=== PATIENT | female | born 1965 | race Caucasian/White ===

== ENCOUNTER → 2024-05-11 | Outpatient (CLI) | payer MEDICARE, OTHER, SELFPAY ==
--- NOTE | 2024-05-11 09:45 | XR_ITS ---
Examination: Breast ultrasound, unilateral, left complete Date and time of exam: May 11, 2024 0952 hrs. Indications: Left breast pain beginning one month ago Technique: Real-time lundberg scale ultrasonographic imaging performed left breast including all 4 quadrants as well as nipple retroareolar and axillary region. Findings: 1:00 cyst 4 x 4 millimeter 3:00 oval mass 2 x 10 mm Impression: BI-RADS Category 2: Benign findings
--- NOTE | 2024-05-11 10:15 | XR_ITS ---
Examination: Diagnostic digital mammography, unilateral, left Computer aided detection 3-D breast Tomosynthesis, unilateral Date and time of exam: 05/11/2024, 1021 Comparisons: 02/10/2024 Indications: Further evaluation of calcifications seen on screening exam. Technique: Nonmagnified MLO, CC views of the left breast have been obtained, reconstructed from 3-D Tomosynthesis images. R2 computer aided detection program utilized for evaluation of suspicious masses and/or abnormal calcifications. 3-D Tomosynthesis images obtained. Technologist: Findings: There are scattered areas of fibroglandular density. Benign vascular calcifications. No evidence of suspicious masses or suspicious calcifications. Impression: BI-RADS category 2: Benign findings Recommend 1 year follow-up mammogram
== END | disposition home or self-care (01) ==
PROVIDERS: PCP Physician Assistant; Referring Provider Physician Assistant; Visit Provider Physician Assistant
DX: R92.323 Mammographic fibroglandular density, bilateral breasts (principal); R92.1 Mammographic calcification found on diagnostic imaging of breast
CPT/HCPCS: 76641; 77061; 77065; G0279

== ENCOUNTER 2024-07-29 11:57 | Emergency (ER) | payer MEDICARE, MEDICAID, SELFPAY ==
[2024-07-29 11:57] VITALS: BMI 38.7
[2024-07-29 12:04] VITALS: BP 154/98; PULSE 87; RESP 18; TEMP 36.8; O2SAT 96
--- NOTE | 2024-07-29 12:05 | XR_ITS ---
Examination: CT brain head without contrast. 2-D sagittal coronal reconstructions Date and time of exam:July 29, 2024 1243 hours INDICATIONS: Severe headaches 4 days COMPARISON: September 02, 2020 CTDI: vol (mGy):48.9 DLP: (mGycm):1056 Technique: Multiple CT axial sections of the brain have been obtained, 5 mm slice thickness. Contrast has not been administered. 2-D sagittal, coronal reconstructions have been obtained Low dose protocols were performed. One or more of the following dose reduction techniques were used; automated exposure control, adjustment of the mA and/or KV according to patient size, use of iterative reconstruction technique. Findings: No significant ventricular enlargement. Intra-axial or extra-axial hemorrhage density is not seen. No mass effect or midline shift Basal cisterns are not remarkable. Fourth ventricle is midline. Cranial vault intact. Impression: Negative for acute hemorrhage, mass effect or midline shift If symptoms persist, consider brain MRI follow-up
--- NOTE | 2024-07-29 12:07 | PD.EDRME ---
Rapid Medical Screening Exam E Arrival date/time: 07/29/24 11:57 59-year-old female with history of MS presents to the Emergency Department today for complaints of headache ongoing for the last 3 days Chief Complaint: Headache Vital signs: Vital Signs Temperature 98.2 F 07/29/24 12:04 Pulse Rate 87 07/29/24 12:04 Respiratory Rate 18 07/29/24 12:04 Blood Pressure 154/98 H 07/29/24 12:04 Pulse Oximetry (%) 96 07/29/24 12:04 Oxygen Delivery Method Room Air 07/29/24 12:04
[2024-07-29] MEDS: METOCLOPRAMIDE 5 MG TABLET 10 MG PO (12:16)
[2024-07-29] MEDS: HYDROcodone/APAP 10/325 TAB PO (12:16)
[2024-07-29] MEDS: DiphenhydrAMINE 25 MG CAPSULE PO (12:17)
[2024-07-29 12:37] LABS: Basophils % (Auto) 0 % (0-2.5); Eosinophils # (Auto) 0.1 Thou/mm3 (0.0-0.5); Eosinophils % (Auto) 1 % (0-10); Hematocrit 48.4 % (36.0-46.0); Hemoglobin 16.7 g/dL (12.0-16.0); Immature Granulocytes % (Auto) 0 % (0-0); Immature Granulocytes Auto 0.04 Thou/mm3 (0.00-0.00); Lymphocytes # (Auto) 3.1 Thou/mm3 (1.0-4.8); Lymphocytes % (Auto) 32 % (10-50); Mean Corpuscular HGB Conc 34.5 g/dl (31.0-37.0); Mean Corpuscular Hemoglobin 30.6 pg (25.0-35.0); Mean Corpuscular Volume 89 fL (80-100); Monocytes # (Auto) 0.6 Thou/mm3 (0.0-0.8); Monocytes % (Auto) 6 % (0-12); Neutrophils # (Auto) 5.6 Thou/mm3 (1.8-7.7); Neutrophils % (Auto) 60 % (37-80); Nucleated Red Blood Cell % 0 /100 WBC (0); Platelet Count 261 Thou/mm3 (140-440); RDW Standard Deviation 43.1 fL (36.4-46.3); Red Blood Count 5.45 Miln/mm3 (4.00-5.20); White Blood Count 9.5 Thou/mm3 (3.6-11.0)
[2024-07-29 13:05] LABS: Alanine Aminotransferase 16 U/L (10-49); Albumin, Serum 4.5 gm/dL (3.4-4.8); Alkaline Phosphatase 124 U/L (46-116); Anion Gap 9 (7-16); Aspartate Amino Transferase 20 U/L (0-34); BUN/Creatinine Ratio 18 Ratio (12-20); Bilirubin,Total 0.7 mg/dL (0.3-1.2); Blood Urea Nitrogen 14 mg/dL (9-23); Calcium 9.5 mg/dL (8.3-10.6); Calcium (Corrected) 9.5 mg/dL (8.5-10.1); Carbon Dioxide 25.7 mMol/L (20.0-31.0); Chloride 107 mMol/L (98-107); Creatinine (Component) 0.8 mg/dL (0.6-1.3); Estimated Creatinine Clearance 93.4 mL/min (>60); Globulin 2.3 gm/dL (2.3-3.5); Glucose 101 mg/dL (74-106); Osmolality,Calculated 283 (275-295); Potassium 3.8 mMol/L (3.4-5.1); Sodium 142 mMol/L (136-145); Total Protein 6.8 gm/dL (5.7-8.2); eGFR > 60 See Note
--- NOTE | 2024-07-29 15:13 | EDNOTE_ITS ---
<Statement entered by Maddie Mcintyre MD - 08/09/24 01:03> As co-signing physician, I was present and available for consult prn. I concur with the plan and care as documented by the midlevel provider. ED Headache RME/HPI General Chief Complaint: Headache Stated Complaint: MIGRAINE HEADACHE X4DAYS Time Seen by Provider: 07/29/24 13:48 Arrival date/time: 07/29/24 11:57 RME / HPI RME / HPI Narrative: 59-year-old female with history of MS presents to the Emergency Department today for complaints of headache ongoing for the last 3 days. Described as dull ache, severity moderate. Patient denies any fever denies any neck pain denies any trauma denies any fall been taking Imitrex with no relief. Denies any vomiting. Related Data Home Medications ?Medication ?Instructions ?Recorded ?Confirmed omeprazole 40 mg capsule,delayed 40 mg PO QDAY 0 01/11/22 release pregabalin 200 mg capsule 200 mg PO TID 08/30/1901/11 cyclobenzaprine 10 mg tablet 10 mg PO QDAY 01/11/22 Previous Rx's ?Medication ?Instructions ?Recorded albuterol sulfate 90 mcg/actuation 1 inh inhalation Q4 H PRN shortness 11/03/20 aerosol inhaler of breath or wheezing #8.5 g delon rizatriptan 10 mg disintegrating See Rx Instructions P O .COMPLEX 07/29/24 tablet (Maxalt-TANK PROCESSOR) #20 tabs Allergies Allergy/AdvReac Type Severity Reaction Status Date / Time azithromycin Allergy Severe ITCHING Verified 07/29/24 12:00 cephalexin Allergy Severe ITCHING Verified 07/29/24 12:00 clarithromycin Allergy Severe ITCHING Verified 07/29/24 12:00 clindamycin Allergy Severe ITCHING, Verified 07/29/24 12:00 RASH latex Allergy Severe DIFF. Verified 07/29/24 12:00 BREATHING, RASH, ITCHING Penicillins Allergy Severe ITCHING Verified 07/29/24 12:00 Sulfa (Sulfonamide Allergy Severe HIVES Verified 07/29/24 12:00 Antibiotics) ciprofloxacin Allergy Intermediate ITCHING,RITU Verified 07/29/24 12:00 H peginterferon beta-1a Allergy Intermediate LOCALIZED Verified 07/29/24 12:00 REACTION AT INJECT SITE rifampin Allergy Unknown RASH Verified 07/29/24 12:00 Review of Systems Review of Systems Narrative Review of Systems: Review of system reviewed and within normal limits except mentioned in HPI ED Exam Narrative Physical exam: VITAL SIGNS: Reviewed. GENERAL APPEARANCE: Alert and interactive, follows commands, no acute distress, HEAD AND FACE: Non-traumatic. ENT: PERRL, pink conjunctivitis, eyelid no trauma, Mucous membrane moist. NECK: Supple, nontender, no nuchal rigidity. CHEST: No tenderness, no crepitus, no paradoxical movement, no retractions. LUNGS: Clear, well ventilated, symmetric, no rales, no wheezing, no ronchi, no stridor, good breath sounds bilaterally. HEART: Regular rate, regular rhythm, no murmur, no gallops. ABDOMEN: Soft, positive bowel sounds, nondistended, no guarding, nontender, no rebound, no masses, RECTAL: Deferred. GENITAL: Deferred. NEUROLOGICAL: Gross motor function intact sensory function intact, Appropriate for age. MUSCULOSKELETAL: low back nontender, full range of motion. EXTREMITIES: Nontender, full range of motion. SKIN: Color pink, dry, no rash, no lacerations, no abrasions, no contusions. LYMPHATICS: Deferred. Course Quality Measures none Orders Category Date Time Status CT head/brain wo con Stat Exams 07/29/24 12:05 Completed CBC Stat Lab 07/29/24 12:26 Completed CMP [Comprehensive Metabolic Panel] Stat Lab 07/29/24 12:26 Completed DiphenhydrAMINE [Benadryl] Med 07/29/24 12:05 Discontinued 25 mg PO X1 ONE HYDROcodone/APAP 10/325 [[place] 10/325] Med 07/29/24 12:05 Discontinued 1 tab PO X1 ONE Metoclopramide [Reglan] Med 07/29/24 12:05 Discontinued 10 mg PO X1 ONE Vital Signs Vital signs: Vital Signs Temperature 98.2 F 07/29/24 12:04 Pulse Rate 87 07/29/24 12:04 Respiratory Rate 18 07/29/24 12:04 Blood Pressure 154/98 H 07/29/24 12:04 Pulse Oximetry (%) 96 07/29/24 12:04 Oxygen Delivery Method Room Air 07/29/24 12:04 Headache MDM Narrative MDM Narrative:: 59-year-old female with history of MS presents to the Emergency Department today for complaints of headache ongoing for the last 3 days. Described as dull ache, severity moderate. Patient denies any fever denies any neck pain denies any trauma denies any fall been taking Imitrex with no relief. Denies any vomiting. CT scan of the head came back unremarkable. CBC CMP also came back normal. Patient was given [place] and Benadryl and Reglan with complete resolution of headache Patient appears nontoxic and hemodynamically stable .Decision to discharge the patient. The patient/family was given an opportunity to ask questions and understood their discharge instructions. Discharge instructions specifically included follow up provider and time frame, current and/or new medications and possible side effects, indications for sooner follow up or return to the emergency department, and the expected course of current diagnosis. Patient reports feeling better as well and giving evidence of significant clinical improvement, I believe patient is now a candidate for discharge. Patient data External records reviewed:: None Clinical information provided by:: patient Social determinants that could affect healthcare access:: none Patient has the following chronic illnesses:: None How is presenting disease/condition affected by chronic disease/condition?: no chronic disease Evaluation data The following diagnostics were reviewed and interpreted by me:: lab results and radiology exam(s) Lab and/or radiology exams considered but not ordered:: None Interpretation Summary: See MDM Medications / Prescriptions Medications or Prescriptions considered but not ordered:: None Medication administrations:: Medication Administration History Discontinued Medications Hydrocodone Bitart/Acetaminophen (Hydrocodone/Apap 10/325 Tab) 1 tab PO X1 ONE Stop: 07/29/24 12:06 Last Admin: 07/29/24 12:16 Dose: 1 tab Documented By: DO Diphenhydramine HCl (Diphenhydramine 25 Mg Capsule) 25 mg PO X1 ONE Stop: 07/29/24 12:06 Last Admin: 07/29/24 12:17 Dose: 25 mg Documented By: DO Metoclopramide HCl (Metoclopramide 5 Mg Tablet) 10 mg PO X1 ONE Stop: 07/29/24 12:06 Last Admin: 07/29/24 12:16 Dose: 10 mg Documented By: DO Reglan, Benadryl and [place] Consultations Consultation(s) initiated? (list below): No Diagnosis Differential diagnosis headache: migraine, tension headache and headache Most likely diagnosis given after review of the tests above:: Migraine headache Admission Indicated Admission indicated?: not indicated Admission Request Was there a request for admission?: No Disposition Plan Disposition Plan: Discharge Discharge Attestation Discharge Attestation: The patient was given an opportunity to ask questions and understood the discharge instructions. Discharge instructions specifically effects, ind ications for sooner follow up or return to the emergency department, and the expected course of current diagnosis. Patient condition: Stable Discharge Plan Plan Patient Disposition: HOME (Self Care) Discharge Disposition comment: stable Prescriptions/Referrals Prescriptions/Med Rec: New rizatriptan [Maxalt-TANK PROCESSOR] 10 mg tablet,disintegrating See Rx Instructions .ROUTE .COMPLEX Qty: 20 0RF Rx Instructions: take 1 tab at onset of headache; if no relief may repeat 1 tab after at least 2 hrs; max = 3 tabs/24 hr No Action omeprazole 40 mg Capsule,Delayed Release(Dr/Ec) 40 mg PO QDAY pregabalin 200 mg Capsule 200 mg PO TID albuterol sulfate 90 mcg/actuation HFA aerosol inhaler 1 inh inhalation Q4H PRN (Reason: shortness of breath or wheezing) Qty: 8.5 0RF cyclobenzaprine 10 mg tablet 10 mg PO QDAY Referrals: Kevin Cavazos MD [Primary Care Provider] - In 1 week Problem List Clinical Impression: Headache, migraine Patient/Caregiver Discharge Instructions Education Materials: Headache Migraine Stages Tx Additional Instructions: Thank you for the opportunity for serving you today. You are stable for discharged . You are advised to: Follow-up with your PCP in 1 to 2 days Return to ED for worsening of symptoms Increase oral fluids Take medication as prescribed Print Language: [place] Islander Stand Alone Forms: Olivia Award Info., Patient Portal Info Letter PA/MAIL DELIVERER Supervising Physician OMAR/GRETCHEN Supervising Physician: MD Farrukh
== END 2024-07-29 15:23 | disposition home or self-care (01) ==
PROVIDERS: Nurse Practitioner Primary Care; Emergency Provider Emergency Medicine; PCP Family Medicine
DX: G43.909 Migraine, unspecified, not intractable, without status migrainosus (principal)
CPT/HCPCS: 36415; 70450; 80053; 85025; 99284; A9270

== ENCOUNTER 2024-08-10 08:20 | Emergency (ER) | payer MEDICARE, MEDICAID, SELFPAY ==
[2024-08-10 08:41] VITALS: BP 159/96; PULSE 79; RESP 17; TEMP 38.1; O2SAT 97; BMI 37.9
--- NOTE | 2024-08-10 08:46 | EKG_ITS ---
[facility] Test Date: 2024-08-10 Pat Name: NORMA PRINCE Department: Room: - Gender: Female Tram Driver: : 1965 Requested By: Miky Suero Order Number: [id number] Reading MD: Miky Suero Measurements Intervals [place] Rate: 76 P: 61 IN: 183 QRS: -16 QRSD: 94 T: 57 QT: 372 QTc: 421 Interpretive Statements SINUS RHYTHM POSSIBLE LEFT ATRIAL ENLARGEMENT [-0.1mV P-WAVE IN V1/V2] LOW QRS VOLTAGE IN PRECORDIAL LEADS [QRS DEFLECTION < 1.0 mV IN CHEST LEADS] Compared to ECG 08/30/2021 10:24:12 Low QRS voltage now present /store/S0/[id number]
--- NOTE | 2024-08-10 08:48 | PD.EDRME ---
Rapid Medical Screening Exam RME Arrival date/time: 08/10/24 08:20 59-year-old female with a history of multiple sclerosis presents to the emergency room with a chief complaint of a fever, chills, weakness x 2 days I have greeted and performed a focused initial assessment of this patient. A comprehensive ED assessment and evaluation of the patient, analysis of all test results, and completion of the medical decision making process will be conducted by additional ED providers. Chief Complaint: General Adult/Misc Complain Time Seen by Provider: 08/10/24 08:31 Vital signs: Vital Signs Temperature 100.5 F H 08/10/24 08:41 Pulse Rate 79 08/10/24 08:41 Respiratory Rate 17 08/10/24 08:41 Blood Pressure 159/96 H 08/10/24 08:41 Pulse Oximetry (%) 97 08/10/24 08:41 Oxygen Delivery Method Room Air 08/10/24 08:41 Vital signs reviewed by provider: Yes
--- NOTE | 2024-08-10 08:49 | XR_ITS ---
Examination: PA lateral chest 2 views TECHNIQUE: Upright PA lateral chest 2 views Date and time: August 10, 2024 0903 hours Comparison August 08, 2021 INDICATIONS: Coughing fever beginning 3 days ago. FINDINGS: Normal heart size No pneumonia or pulmonary edema Intact osseous structures IMPRESSION: No active disease
[2024-08-10] MEDS: ACETAMINOPHEN 325 MG TABLET 650 MG PO (08:55)
[2024-08-10] MEDS: dexAMETHasone 4 MG TABLET 10 MG PO (08:56)
[2024-08-10 09:26] LABS: Collection Type, Urine Clean Catch
[2024-08-10 09:40] LABS: Bacteria,Urine Rare; Bilirubin,Urine Negative (Negative); Blood,Urine Negative (Negative); Clarity,Urine Clear (Clear/Hazy); Color,Urine Yellow (Lt Yel-Yel); Glucose, Urine Negative (Negative); Ketones,Urine Negative (Negative); Leukocyte Esterase,Urine Negative (Negative); Nitrite,Urine Negative (Negative); Protein,Urine Negative (Neg - Trace); RBC,Urine 5 /hpf (0-3); Specific Gravity,Urine 1.036 (1.001-1.035); Squamous Epithelial Cell,Urine 11 /hpf (0-5); WBC,Urine 2 /hpf (0-5)
[2024-08-10 09:51] LABS: Amphetamine/Methamp Scrn,U Negative (Negative); Barbiturate Screen,Urine Negative (Negative); Benzodiazepines Screen,Urine Negative (Negative); Benzoylecgonine Screen, Ur Negative (Negative); Fentanyl Screen,Urine Negative (Negative); Opiate Screen,Urine Negative (Negative); THC Screen,Urine Positive (Negative)
[2024-08-10 09:58] LABS: Basophils % (Auto) 0 % (0-2.5); Eosinophils # (Auto) 0.1 Thou/mm3 (0.0-0.5); Eosinophils % (Auto) 1 % (0-10); Hematocrit 48.8 % (36.0-46.0); Hemoglobin 16.5 g/dL (12.0-16.0); Immature Granulocytes % (Auto) 0 % (0-0); Immature Granulocytes Auto 0.04 Thou/mm3 (0.00-0.00); Lymphocytes # (Auto) 2.6 Thou/mm3 (1.0-4.8); Lymphocytes % (Auto) 28 % (10-50); Mean Corpuscular HGB Conc 33.8 g/dl (31.0-37.0); Mean Corpuscular Hemoglobin 30.5 pg (25.0-35.0); Mean Corpuscular Volume 90 fL (80-100); Monocytes # (Auto) 0.6 Thou/mm3 (0.0-0.8); Monocytes % (Auto) 6 % (0-12); Neutrophils % (Auto) 65 % (37-80); Nucleated Red Blood Cell % 0 /100 WBC (0); Platelet Count 251 Thou/mm3 (140-440); RDW Standard Deviation 44.1 fL (36.4-46.3); Red Blood Count 5.41 Miln/mm3 (4.00-5.20); White Blood Count 9.4 Thou/mm3 (3.6-11.0)
[2024-08-10 10:14] LABS: Alanine Aminotransferase 21 U/L (10-49); Albumin, Serum 4.8 gm/dL (3.4-4.8); Albumin/Globulin Ratio 2.3 (1.2-2.2); Alkaline Phosphatase 126 U/L (46-116); Anion Gap 7 (7-16); BUN/Creatinine Ratio 23 Ratio (12-20); Bilirubin,Total 0.7 mg/dL (0.3-1.2); Blood Urea Nitrogen 18 mg/dL (9-23); Calcium 10.1 mg/dL (8.3-10.6); Calcium (Corrected) 10.1 mg/dL (8.5-10.1); Carbon Dioxide 27.7 mMol/L (20.0-31.0); Chloride 104 mMol/L (98-107); Creatinine (Component) 0.8 mg/dL (0.6-1.3); Estimated Creatinine Clearance 92.3 mL/min (>60); Globulin 2.1 gm/dL (2.3-3.5); Glucose 139 mg/dL (74-106); Osmolality,Calculated 281 (275-295); Potassium 3.6 mMol/L (3.4-5.1); Sodium 139 mMol/L (136-145); Total Protein 6.9 gm/dL (5.7-8.2); Troponin I < 0.020 ng/mL (0.0-0.045); eGFR > 60 See Note
[2024-08-10 10:20] LABS: Partial Thromboplastin Time 27.1 Seconds (22.0-36.0); Prothrombin Time 10.5 Seconds (9.0-12.2)
[2024-08-10 10:34] LABS: B-Type Natriuretic Peptide 25 pg/mL (0-100)
[2024-08-10 12:47] VITALS: BP 170/105; PULSE 85; RESP 18; TEMP 36.9; O2SAT 96
--- NOTE | 2024-08-10 13:41 | PD.EDADULT ---
ED General RME/HPI General Chief complaint: General Adult/Misc Complain Stated complaint: EXACERBATION OF MS Time Seen by Provider: 08/10/24 08:31 Arrival date/time: 08/10/24 08:20 RME / HPI RME / HPI narrative: 59-year-old female patient with significant history of multiple sclerosis, currently not on any medications, came in for evaluation regarding not feeling well. Patient has been having this symptom for several days and this morning was noted to be shaky and having chills and worsening weakness. Denies any blurry vision denies any headache denies any other complaints. Patient used to see Dr Pierson however she moved to [place] and came back. She was admitted in [place] twice for IVIG due to exacerbation of multiple sclerosis. She thinks is having flareup of multiple sclerosis. Related Data Home Medications ?Medication ?Instructions ?Recorded ?Confirmed omeprazole 40 mg capsule,delayed 40 mg PO QDAY 08/30/19 01/11/22 release pregabalin 200 mg capsule 200 mg PO TID 08/30/19 01/11/22 cyclobenzaprine 10 mg tablet 10 mg PO QDAY 01/11/22 01/11/22 Previous Rx's ?Medication ?Instructions ?Recorded albuterol sulfate 90 mcg/actuation 1 inh inhalation Q4H PRN shortness 11/03/20 aerosol inhaler of breath or wheezing #8.5 grams rizatriptan 10 mg disintegrating See Rx Instructions PO .COMPLEX 07/29/24 tablet (Maxalt-WAISTLINE JOINER LOCKSTITCH) #20 tabs Allergies Allergy/AdvReac Type Severity Reaction Status Date / Time azithromycin Allergy Severe ITCHING Verified 08/10/24 08:25 cephalexin Allergy Severe ITCHING Verified 08/10/24 08:25 clarithromycin Allergy Severe ITCHING Verified 08/10/24 08:25 clindamycin Allergy Severe ITCHING, Verified 08/10/24 08:25 RASH latex Allergy Severe DIFF. Verified 08/10/24 08:25 BREATHING, RASH, ITCHING Penicillins Allergy Severe ITCHING Verified 08/10/24 08:25 Sulfa (Sulfonamide Allergy Severe HIVES Verified 08/10/24 08:25 Antibiotics) ciprofloxacin Allergy Intermediate ITCHING,RITU Verified 08/10/24 08:25 H peginterferon beta-1a Allergy Intermediate LOCALIZED Verified 08/10/24 08:25 REACTION AT INJECT SITE rifampin Allergy Unknown RASH Verified 08/10/24 08:25 OCCUVISE Allergy Severe Anaphylaxis Uncoded 08/10/24 08:25 Review of Systems Review of Systems Narrative Review of Systems: Review of system reviewed and within normal limits except mentioned in HPI ED Exam Narrative Physical exam: VITAL SIGNS: Reviewed. GENERAL APPEARANCE: Alert and interactive, follows commands, no acute distress, HEAD AND FACE: Non-traumatic. ENT: PERRL, pink conjunctivitis, eyelid no trauma, Mucous membrane moist. NECK: Supple, nontender, no nuchal rigidity. CHEST: No tenderness, no crepitus, no paradoxical movement, no retractions. LUNGS: Clear, well ventilated, symmetric, no rales, no wheezing, no ronchi, no stridor, good breath sounds bilaterally. HEART: Regular rate, regular rhythm, no murmur, no gallops. ABDOMEN: Soft, positive bowel sounds, nondistended, no guarding, nontender, no rebound, no masses, RECTAL: Deferred. GENITAL: Deferred. NEUROLOGICAL: Gross motor function intact sensory function intact, Appropriate for age. MUSCULOSKELETAL: low back nontender, full range of motion. EXTREMITIES: Nontender, full range of motion. SKIN: Color pink, dry, no rash, no lacerations, no abrasions, no contusions. LYMPHATICS: Deferred. Course Quality Measures none Orders Category Date Time Status Bedside COVID-19 Antigen Test NOW Care 08/10/24 12:21 Completed Bedside Influenza A&B Antigen Test NOW Care 08/10/24 08:49 Completed EKG (ED ONLY) *Do not use* NOW Care 08/10/24 08:46 Completed EKG (ED Only) Stat Exams 08/10/24 08:46 Draft XR chest 2V Stat Exams 08/10/24 08:49 Completed B-Type Natriuretic Peptide Stat Lab 08/10/24 09:00 Completed CBC Stat Lab 08/10/24 09:00 Completed Comprehensive Metabolic Panel Stat Lab 08/10/24 09:00 Completed Drug Screen,Urine Stat Lab 08/10/24 09:13 Completed Partial Thromboplastin Time Stat Lab 08/10/24 09:00 Completed Prothrombin Time with INR Stat Lab 08/10/24 09:00 Completed Troponin I Stat Lab 08/10/24 09:00 Completed Urinalysis Stat Lab 08/10/24 09:13 Completed Acetaminophen Tab [Tylenol Tab] Med 08/10/24 08:46 Discontinued 650 mg PO X1 ONE dexAMETHasone TAB [Decadron Tab] Med 08/10/24 08:46 Discontinued 10 mg PO X1 ONE Vital Signs Vital signs: Vital Signs Temperature 100.5 F H 08/10/24 08:41 Pulse Rate 79 08/10/24 08:41 Respiratory Rate 17 08/10/24 08:41 Blood Pressure 159/96 H 08/10/24 08:41 Pulse Oximetry (%) 97 08/10/24 08:41 Oxygen Delivery Method Room Air 08/10/24 08:41 Discharge Plan Plan Patient Disposition: HOME (Self Care) Discharge Disposition comment: stable Prescriptions/Referrals Prescriptions/Med Rec: No Action omeprazole 40 mg Capsule,Delayed Release(Dr/Ec) 40 mg PO QDAY pregabalin 200 mg Capsule 200 mg PO TID albuterol sulfate 90 mcg/actuation HFA aerosol inhaler 1 inh inhalation Q4H PRN (Reason: shortness of breath or wheezing) Qty: 8.5 0RF cyclobenzaprine 10 mg tablet 10 mg PO QDAY rizatriptan [Maxalt-WAISTLINE JOINER LOCKSTITCH] 10 mg tablet,disintegrating See Rx Instructions .ROUTE .COMPLEX Qty: 20 0RF Rx Instructions: take 1 tab at onset of headache; if no relief may repeat 1 tab after at least 2 hrs; max = 3 tabs/24 hr Referrals: Kevin Cavazos MD [Primary Care Provider] - In 1 week Problem List Clinical Impression: Weakness Patient/Caregiver Discharge Instructions Discharge Activity: activity as tolerated Education Materials: ED Weakness (Uncertain Cause) Additional Instructions: Follow up with Dr Pierson in 1-2 days Return to ED for worsening symptoms Print Language: [place] Stand Alone Forms: Olivia Award Info., Patient Portal Info Letter PA/JOIST SETTER Supervising Physician PA/JOIST SETTER Supervising Physician: Dr Chapman, ABHINAV Narrative MDM hospital course: 59-year-old female patient with significant history of multiple sclerosis, currently not on any medications, came in for evaluation regarding not feeling well. Patient has been having this symptom for several days and this morning was noted to be shaky and having chills and worsening weakness. Denies any blurry vision denies any headache denies any other complaints. Patient used to see Dr Pierson however she moved to [place] and came back. She was admitted in [place] twice for IVIG due to exacerbation of multiple sclerosis. She thinks is having flareup of multiple sclerosis. Patient's workup today including chest x-ray came back unremarkable. Negative for COVID and influenza. I discussed the case with Dr Pierson, patient's neurologist, who told me that patient is okay to be discharged home and follow-up in his clinic in few days. Plan of care discussed with the patient who agrees with the plan. Patient appears nontoxic and hemodynamically stable .Decision to discharge the patient. The patient/family was given an opportunity to ask questions and understood their discharge instructions. Discharge instructions specifically included follow up provider and time frame, current and/or new medications and possible side effects, indications for sooner follow up or return to the emergency department, and the expected course of current diagnosis. Patient reports feeling better as well and giving evidence of significant clinical improvement, I believe patient is now a candidate for discharge. Patient was noted to be ambulatory unaided with no problem. Medication Administration(s) Medication Administration History Discontinued Medications Acetaminophen (Acetaminophen 325 Mg Tablet) 650 mg PO X1 ONE Stop: 08/10/24 08:47 Last Admin: 08/10/24 08:55 Dose: 650 mg Documented By: BESS Dexamethasone (Dexamethasone 4 Mg Tablet) 10 mg PO X1 ONE Stop: 08/10/24 08:47 Last Admin: 08/10/24 08:56 Dose: 10 mg Documented By: BESS Dispositon Disposition: Discharge Home
[2024-08-10 14:00] VITALS: BP 171/108; PULSE 73; RESP 18; TEMP 36.6; O2SAT 100
== END 2024-08-10 14:44 | disposition home or self-care (01) ==
PROVIDERS: Nurse Practitioner Family; Emergency Provider Emergency Medicine; PCP Family Medicine
DX: R53.1 Weakness (principal); G35 Multiple sclerosis
CPT/HCPCS: 36415; 71046; 80053; 80307; 81001; 83880; 84484; 85025; 85610; 85730; 87400; 87811; 93005; 99283; J8540; A9270

== ENCOUNTER 2024-11-01 09:37 | Emergency (ER) | payer MEDICARE, MEDICAID, SELFPAY ==
[2024-11-01 09:57] VITALS: BP 164/104; PULSE 84; RESP 18; TEMP 37.1; O2SAT 96
[2024-11-01 10:00] VITALS: BMI 36.3
--- NOTE | 2024-11-01 10:02 | EKG_ITS ---
[facility] Test Date: 2024-11-01 Pat Name: NORMA PRINCE Department: Room: - Gender: Female Medical Delivery Driver: : 1965 Requested By: Miky Suero Order Number: [id number] Reading MD: Miky Suero Measurements Intervals [place] Rate: 81 P: 53 NE: 179 QRS: 7 QRSD: 86 T: 45 QT: 359 QTc: 417 Interpretive Statements SINUS RHYTHM LOW QRS VOLTAGE IN PRECORDIAL LEADS [QRS DEFLECTION < 1.0 mV IN CHEST LEADS] Compared to ECG 08/10/2024 08:50:02 No significant changes /store/S0/[id number]
--- NOTE | 2024-11-01 10:04 | PD.EDRME ---
Rapid Medical Screening Exam RME Arrival date/time: 11/01/24 09:37 59-year-old female with a history of migraines presents to the emergency room with a chief complaint of a headache, weakness, lightheadedness x 3 days I have greeted and performed a focused initial assessment of this patient. A comprehensive ED assessment and evaluation of the patient, analysis of all test results, and completion of the medical decision making process will be conducted by additional ED providers. Chief Complaint: Headache Time Seen by Provider: 11/01/24 09:49 Vital signs: Vital Signs Temperature 98.8 F 11/01/24 09:57 Pulse Rate 84 11/01/24 09:57 Respiratory Rate 18 11/01/24 09:57 Blood Pressure 164/104 H 11/01/24 09:57 Pulse Oximetry (%) 96 11/01/24 09:57 Oxygen Delivery Method Room Air 11/01/24 09:57 Vital signs reviewed by provider: Yes
[2024-11-01] MEDS: DiphenhydrAMINE ELIX 25 MG/10 ML UDC PO (10:17)
[2024-11-01] MEDS: METOCLOPRAMIDE 5 MG TABLET 10 MG PO (10:17)
[2024-11-01] MEDS: KETOROLAC INJ 60 MG/2 ML VIAL 30 MG IM (10:17)
[2024-11-01 10:55] LABS: Basophils # (Auto) 0.0 Thou/mm3 (0.0-0.2); Basophils % (Auto) 1 % (0-2.5); Eosinophils # (Auto) 0.1 Thou/mm3 (0.0-0.5); Eosinophils % (Auto) 1 % (0-10); Hematocrit 46.3 % (36.0-46.0); Hemoglobin 15.9 g/dL (12.0-16.0); Immature Granulocytes Auto 0.03 Thou/mm3 (0.00-0.00); Lymphocytes # (Auto) 2.7 Thou/mm3 (1.0-4.8); Lymphocytes % (Auto) 35 % (10-50); Mean Corpuscular HGB Conc 34.3 g/dl (31.0-37.0); Mean Corpuscular Hemoglobin 30.9 pg (25.0-35.0); Mean Corpuscular Volume 90 fL (80-100); Monocytes # (Auto) 0.6 Thou/mm3 (0.0-0.8); Monocytes % (Auto) 7 % (0-12); Neutrophils # (Auto) 4.4 Thou/mm3 (1.8-7.7); Neutrophils % (Auto) 56 % (37-80); Nucleated Red Blood Cell # 0.00 Thou/mm3 (0.00-0.00); Nucleated Red Blood Cell % 0 /100 WBC (0); Platelet Count 214 Thou/mm3 (140-440); RDW Standard Deviation 42.5 fL (36.4-46.3); Red Blood Count 5.15 Miln/mm3 (4.00-5.20); White Blood Count 7.8 Thou/mm3 (3.6-11.0)
[2024-11-01 11:15] LABS: Alanine Aminotransferase 24 U/L (10-49); Albumin, Serum 4.1 gm/dL (3.4-4.8); Albumin/Globulin Ratio 1.8 (1.2-2.2); Alkaline Phosphatase 118 U/L (46-116); Anion Gap 7 (7-16); Aspartate Amino Transferase 18 U/L (0-34); B-Type Natriuretic Peptide 37 pg/mL (0-100); BUN/Creatinine Ratio 12 Ratio (12-20); Bilirubin,Total 0.5 mg/dL (0.3-1.2); Blood Urea Nitrogen 11 mg/dL (9-23); Calcium 9.9 mg/dL (8.3-10.6); Calcium (Corrected) 9.9 mg/dL (8.5-10.1); Carbon Dioxide 25.9 mMol/L (20.0-31.0); Chloride 109 mMol/L (98-107); Creatinine (Component) 0.9 mg/dL (0.6-1.3); Estimated Creatinine Clearance 80.2 mL/min (>60); Globulin 2.3 gm/dL (2.3-3.5); Glucose 92 mg/dL (74-106); Osmolality,Calculated 282 (275-295); Potassium 3.8 mMol/L (3.4-5.1); Sodium 142 mMol/L (136-145); Total Protein 6.4 gm/dL (5.7-8.2); Troponin I < 0.020 ng/mL (0.0-0.045); eGFR > 60 See Note
--- NOTE | 2024-11-01 12:06 | EDNOTE_ITS ---
<Statement entered by Maddie Mcintyre MD - 11/12/24 11:14> As co-signing physician, I was present and available for consult prn. I concur with the plan and care as documented by the midlevel provider. ED General RME/HPI General Chief complaint: Headache Stated complaint: MIGRAIN DANIELS SINCE THURSDAY Time Seen by Provider: 11/01/24 09:49 Arrival date/time: 11/01/24 09:37 CC: Headache nausea vomiting light sensitivity noise sensitivity HPI ongoing for the past 2-1/2 days has long history of migraines. Patient also states that she has fibromyalgia and MS. Patient was taking her ergotamine for the past 3-1/2 days without relief. Patient denies chest pain shortness of breath or dif ficulty breathing. At time of exam the patient had received an injection of medication here and is incomplete relief with no symptoms whatsoever. RME / HPI RME / HPI narrative: 11/01/24 09:37 59-year-old female with a history of migraines presents to the emergency room with a chief complaint of a headache, weakness, lightheadedness x 3 days I have greeted and performed a focused initial assessment of this patient. A comprehensive ED assessment and evaluation of the patient, analysis of all test results, and completion of the medical decision making process will be conducted by additional ED providers. 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 Verified 08/10/24 08:25 BREATHING, RASH, ITCHING Penicillins Allergy Severe ITCHING Verified 08/10/24 08:25 Sulfa (Sulfonamide Allergy Severe HIVES Verified 08/10/24 08:25 Antibiotics) ciprofloxacin Allergy Intermediate ITCHING,RITU Verified 08/10/24 08:25 H peginterferon beta-1a Allergy Intermediate LOCALIZED Verified 08/10/24 08:25 REACTION AT INJECT SITE rifampin Allergy Unknown RASH Verified 08/10/24 08:25 OCCUVISE Allergy Severe Anaphylaxis Uncoded 08/10/24 08:25 Review of Systems Review of Systems Narrative Review of Systems: GEN: No fever, no chills, no weight loss EYES: No discharge, no visual changes, no pain HEENT: No ear pain, no congestion, no sore throat PULM: No shortness of breath, no cough, no congestion CV: No chest pain, no dyspnea on exertion, no palpitations GI: No nausea, no vomiting, no diarrhea, no pain, no constipation : No frequency, no urgency, no dysuria MUSC/SKEL: No joint pain, no back pain SKIN: No rash PSYCH: No hallucinations, no depression HEME/LYMPH: No easy bleeding or bruising tendencies NEURO: No weakness, + headache Past Medical History Past Medical History NEUROLOGIC: Positive Neurological Disorders, Meningitis, Seizures, Multiple Sclerosis and Migraine CARDIAC: Positive Cardiac Disorders, Atherosclerotic Heart Disease, Hypercholesterolemia and Edema; Negative Congestive Heart Failure or Hypertension RESPIRATORY: Negative Chronic Obstructive Pulmonary Disease (COPD) or Asthma GASTROINTESTINAL: Positive Gastrointestinal Disorders, Colitis, Diverticulitis and Ulcer; Negative Gall Bladder Disease GENITOURINARY: Negative Genitourinary Disorders or Renal Disease REPRODUCTIVE: Positive Endometriosis and Previous Pregnancies MUSCULOSKELETAL: Positive Musculoskeletal Disorders, Arthritis and Fibromyalgia ENT: Negative Cataracts ENDOCRINE: Negative Endocrine Disorders, Diabetes Mellitus Type 1 or Diabetes Mellitus Type 2 HEMATOLOGIC: Negative Blood Disorders or Sickle Cell Disease PSYCHO/SOCIAL: Positive Depression, Anxiety and Post Traumatic Stress Disorder OTHER HISTORY: Positive Hospitalization, Shingles and Chicken Pox; Negative Autoimmune Disease Family History FAMILY HISTORY: Positive Family Psychiatric Problems, Family Respiratory Disorders, Family Cardiac Disorders, Family Gastrointestinal Problems and Family Cancer; Negative Family Surgery or Family Anesthesia Reaction Surgical History SURGICAL: Positive Ear Surgery, Tonsillectomy, Adenoidectomy, Cochlear Implant, Abdominal Surgery, Joint Replacement and Hysterectomy; Negative Cardiac Surgery Social History SMOKING STATUS: Never smoker SUBSTANCE USE: does not use ED Exam Narrative Physical exam: [General: Obese not in any acute distress Head normocephalic HEENT: Eyes pupils are PERRLA EOMs are intact mouth pink moist membranes uvula is midline swallow symmetrical phonation is normal all other subsystems of HEENT are within acceptable limits Neck is supple nontender Chest equal chest rise nontender to palpation Respiratory: Clear to auscultation no wheezes crackles or rubs CV: Rate rhythm is regular no murmurs rubs or clicks Abdomen is distended secondary to body habitus soft nontender no masses positive bowel sounds all 4 quadrants Back: No CVA tenderness no spinous process tenderness from cervical spine thoracic and lumbar spine Skin: Intact no petechiae rash induration ulceration or crepitus Extremities: Moving all extremity against resistance cap refill less than 2 seconds neurosensory intact Neuro: Awake alert oriented x3 Glascow coma 15 no focal deficits] Course Quality Measures none Orders Category Date Time Status EKG (ED ONLY) *Do not use* NOW Care 11/01/24 10:02 Completed EKG (ED Only) Stat Exams 11/01/24 10:02 Draft B-Type Natriuretic Peptide Stat Lab 11/01/24 10:36 Completed CBC Stat Lab 11/01/24 10:36 Completed Comprehensive Metabolic Panel Stat Lab 11/01/24 10:36 Completed Troponin I Stat Lab 11/01/24 10:36 Completed DiphenhydrAMINE [Benadryl] Med 11/01/24 10:02 Discontinued 25 mg PO X1 ONE Ketorolac Inj [Toradol Inj] Med 11/01/24 10:02 Discontinued 30 mg IM X1 ONE Metoclopramide [Reglan] Med 11/01/24 10:02 Discontinued 10 mg PO X1 ONE Vital Signs Vital signs: Vital Signs Temperature 98.8 F 11/01/24 09:57 Pulse Rate 84 11/01/24 09:57 Respiratory Rate 18 11/01/24 09:57 Blood Pressure 164/104 H 09/02/25 09:57 Pulse Oximetry (%) 96 11/01/24 09:57 Oxygen Delivery Method Room Air 11/01/24 09:57 Discharge Plan Plan Patient Disposition: HOME (Self Care) Patient condition on transfer: Stable Prescriptions/Referrals Prescriptions/Med Rec: New ketorolac 10 mg tablet 10 mg PO Q8H Qty: 10 0RF Rx Instructions: maximum total duration of 5 days from all oral, intranasal, or parenteral formulations ondansetron 4 mg tablet,disintegrating 4 mg PO Q8H Qty: 10 0RF No Action omeprazole 40 mg Capsule,Delayed Release(Dr/Ec) 40 mg PO QDAY pregabalin 200 mg Capsule 200 mg PO TID albuterol sulfate 90 mcg/actuation HFA aerosol inhaler 1 inh inhalation Q4H PRN (Reason: shortness of breath or wheezing) Qty: 8.5 0RF cyclobenzaprine 10 mg tablet 10 mg PO QDAY rizatriptan [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] 10 mg tablet,disintegrating See Rx Instructions .ROUTE .COMPLEX Qty: 20 0RF Rx Instructions: take 1 tab at onset of headache; if no relief may repeat 1 tab after at least 2 hrs; max = 3 tabs/24 hr Referrals: No Primary/Family,Physician [Primary Care Provider] - In 1 week Kevin Cavazos MD [Physician] - In 1 week Problem List Clinical Impression: Migraine Patient/Caregiver Discharge Instructions Education Materials: ED Headache, Migraine, Classic Print Language: Lithuanian Stand Alone Forms: Olivia Award Info., Patient Portal Info Letter PA/INFORMATION SERVICES CONSULTANT Supervising Physician PA/INFORMATION SERVICES CONSULTANT Supervising Physician: Farhad Gaytan ENP [facility] Clinical Information Provided by patient Medical Records Reviewed [facility] Meds/Rx Considered, not Ordered None Labs/Rad/Tests considered, not Ordered None Chronic Illness/Social Conditions Add or document further as needed: MS, fibromyalgia, morbid obesity EKG EKG Interpretation narrative: EKG performed at 1011 shows a ventricular rate of 81 IN interval 179 QRS of 8 6 QTc of 396 this is sinus rhythm no significant ST segment changes. Lab Interpretation Lab(s) interpretation(s): CBC shows no acute leukocytosis anemia thrombocytopenia CMP shows no significant electrolyte imbalances renal impairment transaminitis or T. bili elevation BNP is negative Troponin is within acceptable limits Imaging Imaging interpretation: interpreted by mn Provider imaging interpretation(s): Differential diagnosis migraine tension headache somatization cluster headache Medication Administration(s) none Medication Administration History Discontinued Medications Diphenhydramine HCl (Diphenhydramine Elix 25 Mg/10 Ml Udc) 25 mg PO X1 ONE Stop: 11/01/24 10:03 Last Admin: 11/01/24 10:17 Dose: 25 mg Documented By: OA Ketorolac Tromethamine (Ketorolac Inj 60 Mg/2 Ml Vial) 30 mg IM X1 ONE Stop: 11/01/24 10:03 Last Admin: 11/01/24 10:17 Dose: 30 mg Documented By: OA Metoclopramide HCl (Metoclopramide 5 Mg Tablet) 10 mg PO X1 ONE Stop: 11/01/24 10:03 Last Admin: 11/01/24 10:17 Dose: 10 mg Documented By: OA Diagnosis Differential diagnosis: See above Most likely dx, and/or detailed dx discussion: Migraine Dispositon Disposition: Discharge Home
== END 2024-11-01 12:23 | disposition home or self-care (01) ==
PROVIDERS: Nurse Practitioner Family; Emergency Provider Emergency Medicine
DX: G43.909 Migraine, unspecified, not intractable, without status migrainosus (principal); R94.31 Abnormal electrocardiogram [ECG] [EKG]; E78.00 Pure hypercholesterolemia, unspecified; I25.10 Atherosclerotic heart disease of native coronary artery without angina pectoris
CPT/HCPCS: 36415; 80053; 83880; 84484; 85025; 93005; 96372; 99283; J1885; A9270

== ENCOUNTER 2024-11-09 09:30 | Outpatient (RCR) | payer MEDICARE, MEDICAID, SELFPAY ==
--- NOTE | 2024-11-09 10:05 | PT.OIERPT ---
PT OP Initial Eval Patient Information Outpatient Physical Therapy Treatment Date: 11/09/24 Visit Reasons: DIFFICULTY WALKING Medical Diagnosis: R26.2 Treatment Dx #1: Difficulty Walking Start of Care: 11/09/24 Smoking Status Smoking Status: Current every day smoker Cessation Counseling Provided: NORMA was advised that quitting smoking is the single most important factor to protect the health of themselves and their family. Discussed the benefits of quitting smoking with patient. Encouraged patient to quit smoking and provided Cessation assistance materials and resources. Tobacco Use: Cigarette Years smoked: 20 Are you interested in quitting?: No Would you like additional Smoking Cessation Counseling?: No Initial Assessment Subjective: Pt is a 59 y/o female reports of intermittent difficulty walking due to multiple sclerosis. At the moment Pt is not having difficult with walking and prefers not to do any physical therapy. Pt's main concern is her neck and shoulder pain which recently started a few months ago. Pt will return back to provider for a new PT order for the neck. Objective: BLE: all motions are WNL BLE MMTs: grossly 4/5 TU sec Assessment: Pt demonstrate functional BLE AROM and strength allowing her to ambulate at base line. At this time Pt will not benefit from physical therapy due to minimal impairment noted with gait. Pt was evaluated and d/c from care; thank you for your referrals. 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
== END 2024-11-29 23:59 | disposition home or self-care (01) ==
LOC: CPTX 09:30
PROVIDERS: PCP Internal Medicine; Referring Provider Internal Medicine; Visit Provider Internal Medicine
DX: R26.2 Difficulty in walking, not elsewhere classified (principal); G35 Multiple sclerosis; M54.2 Cervicalgia; M25.519 Pain in unspecified shoulder; Z71.6 Tobacco abuse counseling; F17.210 Nicotine dependence, cigarettes, uncomplicated
CPT/HCPCS: 97162

== ENCOUNTER 2024-12-03 11:46 | Emergency (ER) | payer MEDICARE, MEDICAID, SELFPAY ==
[2024-12-03 11:47] VITALS: BMI 36.3
[2024-12-03 12:54] VITALS: BP 177/101; PULSE 72; RESP 18; TEMP 36.8; O2SAT 98; BMI 33.0
--- NOTE | 2024-12-03 13:04 | XR_ITS ---
Examination: Foot, right, 3 views Technique: AP, oblique, lateral views foot, 3 views Date and time of exam: December 03, 2024, 1323 hrs. Indications: Injury to the foot 3 days ago, foot pain. Findings: Moderate osteopenia No acute fracture No dislocation Impression: No acute fracture
--- NOTE | 2024-12-03 14:04 | PD.EDANKLE ---
Lower Extremity Injury RME/HPI General Chief Complaint: Ankle/Foot Injury Stated Complaint: R FOOT PAIN S/P DOG JUMPING ON ME Time Seen by Provider: 12/03/24 11:49 Arrival date/time: 12/03/24 11:46 This is a 59-year-old female that comes into the emergency room with complaints of right foot pain. Patient states that on 2 different occasion her dog stepped on her. Patient denies any other trauma. Patient has some mild edema to her right foot. Related Data Home Medications ?Medication ?Instructions ?Recorded ?Confirmed omeprazole 40 mg capsule,delayed 40 mg PO QDAY 08/30/19 01/11/22 release pregabalin 200 mg capsule 200 mg PO TID 08/30/19 01/11/22 cyclobenzaprine 10 mg tablet 10 mg PO QDAY 01/11/22 01/11/22 Previous Rx's ?Medication ?Instructions ?Recorded albuterol sulfate 90 mcg/actuation 1 inh inhalation Q4H PRN shortness 11/03/20 aerosol inhaler of breath or wheezing #8.5 grams rizatriptan 10 mg disintegrating See Rx Instructions PO .COMPLEX 07/29/24 tablet (Maxalt-APPLICATION DBA) #20 tabs ketorolac 10 mg tablet 10 mg PO Q8H #10 tabs 11/01/24 ondansetron 4 mg disintegrating 4 mg PO Q8H #10 tabs 11/01/24 tablet Allergies Allergy/AdvReac Type Severity Reaction Status Date / Time azithromycin Allergy Severe ITCHING Verified 12/03/24 11:52 cephalexin Allergy Severe ITCHING Verified 12/03/24 11:52 clarithromycin Allergy Severe ITCHING Verified 12/03/24 11:52 clindamycin Allergy Severe ITCHING, Verified 12/03/24 11:52 RASH latex Allergy Severe DIFF. Verified 12/03/24 11:52 BREATHING, RASH, ITCHING Penicillins Allergy Severe ITCHING Verified 12/03/24 11:52 Sulfa (Sulfonamide Allergy Severe HIVES Verified 12/03/24 11:52 Antibiotics) ciprofloxacin Allergy Intermediate ITCHING,RITU Verified 12/03/24 11:52 H peginterferon beta-1a Allergy Intermediate LOCALIZED Verified 12/03/24 11:52 REACTION AT INJECT SITE rifampin Allergy Unknown RASH Verified 12/03/24 11:52 OCCUVISE Allergy Severe Anaphylaxis Uncoded 12/03/24 11:52 Review of Systems Review of Systems Systems Reviewed: All systems reviewed, normal except as documented Past Medical History Past Medical History NEUROLOGIC: Positive Neurological Disorders, Meningitis, Seizures, Multiple Sclerosis and Migraine CARDIAC: Positive Cardiac Disorders, Atherosclerotic Heart Disease, Hypercholesterolemia and Edema; Negative Congestive Heart Failure or Hypertension RESPIRATORY: Negative Chronic Obstructive Pulmonary Disease (COPD) or Asthma GASTROINTESTINAL: Positive Gastrointestinal Disorders, Colitis, Diverticulitis and Ulcer; Negative Gall Bladder Disease GENITOURINARY: Negative Genitourinary Disorders or Renal Disease REPRODUCTIVE: Positive Endometriosis and Previous Pregnancies MUSCULOSKELETAL: Positive Musculoskeletal Disorders, Arthritis and Fibromyalgia ENT: Negative Cataracts ENDOCRINE: Negative Endocrine Disorders, Diabetes Mellitus Type 1 or Diabetes Mellitus Type 2 HEMATOLOGIC: Negative Blood Disorders or Sickle Cell Disease PSYCHO/SOCIAL: Positive Depression, Anxiety and Post Traumatic Stress Disorder OTHER HISTORY: Positive Hospitalization, Shingles and Chicken Pox; Negative Autoimmune Disease Family History FAMILY HISTORY: Positive Family Psychiatric Problems, Family Respiratory Disorders, Family Cardiac Disorders, Family Gastrointestinal Problems and Family Cancer; Negative Family Surgery or Family Anesthesia Reaction Surgical History SURGICAL: Positive Ear Surgery, Tonsillectomy, Adenoidectomy, Cochlear Implant, Abdominal Surgery, Joint Replacement and Hysterectomy; Negative Cardiac Surgery Social History SMOKING STATUS: Never smoker SUBSTANCE USE: does not use ED Exam Narrative Physical exam: VITAL SIGNS: Reviewed. GENERAL APPEARANCE: Alert and interactive, follows commands, no acute distress HEAD AND FACE: Non-traumatic. ENT: PERRL, conjuctiva pink and clear, eyelid no trauma, Mucous membrane moist. NECK: Supple, nontender, no nuchal rigidity. CHEST: No tenderness, no crepitus, no paradoxical movement, no retractions. LUNGS: breathing even and unlabored HEART: Regular rate, cap refill less than 2 seconds ABDOMEN: Soft, nondistended, no guarding, nontender, no rebound, no masses, NEUROLOGICAL: Gross motor function intact sensory function intact, Appropriate for age. MUSCULOSKELETAL: low back nontender, full range of motion. EXTREMITIES: No redness no swelling no skin breakdown on bilateral foot and leg. Distal neurovascular status intact bilateral foot SKIN: Color pink, dry, mild swelling to dorsal right foot Course Quality Measures none Orders Category Date Time Status XR foot comp RT min 3V Stat Exams 12/03/24 13:04 Completed Vital Signs Vital signs: Vital Signs Temperature 98.3 F 12/03/24 12:54 Pulse Rate 72 12/03/24 12:54 Respiratory Rate 18 12/03/24 12:54 Blood Pressure 177/101 H 12/03/24 12:54 Pulse Oximetry (%) 98 12/03/24 12:54 Oxygen Delivery Method Room Air 12/03/24 12:54 Extremity Injury, Lower MDM Narrative MDM Narrative:: foot x ray: Findings: Moderate osteopenia No acute fracture No dislocation Impression: No acute fracture Discussed results with patient. Patient told to use ibuprofen Tylenol at home for pain. Patient to follow-up with primary provider in 1 to 2 days. [place] to the emergency room symptoms change or worsen per Patient data External records reviewed:: [facility] previous records Clinical information provided by:: patient Social determinants that could affect healthcare access:: none Patient has the following chronic illnesses:: none How is presenting disease/condition affected by chronic disease/condition?: no chronic disease Evaluation data The following diagnostics were reviewed and interpreted by me:: radiology exam(s) Lab and/or radiology exams considered but not ordered:: none Interpretation Summary: see note Medications / Prescriptions Medications or Prescriptions considered but not ordered:: none Medication administrations:: see note Consultations Consultation(s) initiated? (list below): No Diagnosis Most likely diagnosis given after review of the tests above:: contusion Admission Indicated Admission indicated?: not indicated Admission Request Was there a request for admission?: No Disposition Plan Disposition Plan: Discharge Discharge Attestation Discharge Attestation: The patient and all family members were given an opportunity to ask questions and understood the discharge instructions. Discharge instructions specifically effects, indications for sooner follow up or return to the emergency department, and the expected course of current diagnosis. Patient condition: Stable Discharge Plan Plan Patient Disposition: HOME (Self Care) Patient condition on transfer: Stable Prescriptions/Referrals Prescriptions/Med Rec: No Action omeprazole 40 mg Capsule,Delayed Release(Dr/Ec) 40 mg PO QDAY pregabalin 200 mg Capsule 200 mg PO TID albuterol sulfate 90 mcg/actuation HFA aerosol inhaler 1 inh inhalation Q4H PRN (Reason: shortness of breath or wheezing) Qty: 8.5 0RF ketorolac 10 mg tablet 10 mg PO Q8H Qty: 10 0RF Rx Instructions: maximum total duration of 5 days from all oral, intranasal, or parenteral formulations ondansetron 4 mg tablet,disintegrating 4 mg PO Q8H Qty: 10 0RF cyclobenzaprine 10 mg tablet 10 mg PO QDAY rizatriptan [Maxalt-APPLICATION DBA] 10 mg tablet,disintegrating See Rx Instructions .ROUTE .COMPLEX Qty: 20 0RF Rx Instructions: take 1 tab at onset of headache; if no relief may repeat 1 tab after at least 2 hrs; max = 3 tabs/24 hr Referrals: Alberto Cavazos MD [Primary Care Provider] - In 1 week Problem List Clinical Impression: Contusion of foot Patient/Caregiver Discharge Instructions Discharge Activity: activity as tolerated Education Materials: Bruises (Contusions) Additional Instructions: Follow up with primary provider in 1-2 days. Come back to ED if symptoms change or worsen Print Language: Sri Lankan Stand Alone Forms: Olivia Award Info., Patient Portal Info Letter PA/DATA KEYER Supervising Physician PA/DATA KEYER Supervising Physician: elsa
== END 2024-12-03 15:28 | disposition home or self-care (01) ==
PROVIDERS: Emergency Provider Emergency Medicine; PCP Family Medicine
DX: S90.31XA Contusion of right foot, initial encounter (principal); Z91.040 Latex allergy status; W54.1XXA Struck by dog, initial encounter
CPT/HCPCS: 73630; 99283

== ENCOUNTER 2024-12-31 17:25 | Emergency (ER) | payer MEDICARE, MEDICAID, SELFPAY ==
[2024-12-31 17:26] VITALS: BMI 36.3
[2024-12-31 17:38] VITALS: BP 161/84; PULSE 88; RESP 18; TEMP 36.7; O2SAT 97
--- NOTE | 2024-12-31 17:44 | PD.EDRME ---
Rapid Medical Screening Exam [facility] Arrival date/time: 12/31/24 17:25 This is a 59-year-old female that comes into the emergency room with complaints of dysuria. Patient also complains of abdominal pain and back pain and nausea. Patient was diagnosed with a UTI earlier today at the clinic. Patient states symptoms are worse she is a lot more nauseated and she was told to come back to the emergency room if her symptoms change or worsen. Patient is also complaining of hematuria. Patient has a history of MS arthritis and fibromyalgia I have greeted and performed a focused initial assessment of this patient. Initial appropriate labs ordered at this time. A comprehensive ED assessment and evaluation of the patient and analysis of all test and completion of medical decision making process will be conducted by additional ED provider. Chief Complaint: Abdominal Pain Time Seen by Provider: 12/31/24 17:31 Vital signs: Vital Signs Temperature 98.1 F 12/31/24 17:38 Pulse Rate 88 12/31/24 17:38 Respiratory Rate 18 12/31/24 17:38 Blood Pressure 161/84 H 12/31/24 17:38 Pulse Oximetry (%) 97 12/31/24 17:38 Oxygen Delivery Method Room Air 12/31/24 17:38 Exam: Breathing even and unlabored, alert and oriented diffuse lower abdominal pain Clinical Impression: Abdominal pain
[2024-12-31 18:09] LABS: Collection Type, Urine Voided
[2024-12-31 18:13] LABS: Basophils # (Auto) 0.0 Thou/mm3 (0.0-0.2); Basophils % (Auto) 0 % (0-2.5); Eosinophils # (Auto) 0.1 Thou/mm3 (0.0-0.5); Eosinophils % (Auto) 1 % (0-10); Hematocrit 44.7 % (36.0-46.0); Hemoglobin 15.3 g/dL (12.0-16.0); Immature Granulocytes Auto 0.05 Thou/mm3 (0.00-0.00); Lymphocytes # (Auto) 2.4 Thou/mm3 (1.0-4.8); Lymphocytes % (Auto) 25 % (10-50); Mean Corpuscular HGB Conc 34.2 g/dl (31.0-37.0); Mean Corpuscular Hemoglobin 31.2 pg (25.0-35.0); Mean Corpuscular Volume 91 fL (80-100); Monocytes # (Auto) 0.7 Thou/mm3 (0.0-0.8); Monocytes % (Auto) 7 % (0-12); Neutrophils # (Auto) 6.4 Thou/mm3 (1.8-7.7); Neutrophils % (Auto) 66 % (37-80); Nucleated Red Blood Cell # 0.00 Thou/mm3 (0.00-0.00); Nucleated Red Blood Cell % 0 /100 WBC (0); Platelet Count 249 Thou/mm3 (140-440); RDW Standard Deviation 43.9 fL (36.4-46.3); Red Blood Count 4.91 Miln/mm3 (4.00-5.20); White Blood Count 9.6 Thou/mm3 (3.6-11.0)
[2024-12-31 18:14] LABS: Amorphous Crystals,Urine Present (Absent); Bilirubin,Urine Negative (Negative); Blood,Urine 3+ (Negative); Budding Yeast,Urine Present; Clarity,Urine Turbid (Clear/Hazy); Color,Urine Yellow (Lt Yel-Yel); Glucose, Urine Negative (Negative); Ketones,Urine Negative (Negative); Leukocyte Esterase,Urine Positive (Negative); Nitrite,Urine Negative (Negative); PH,Urine 6.0 (5.0-7.0); Protein,Urine 1+ (Neg - Trace); RBC,Urine 142 /hpf (0-3); Specific Gravity,Urine 1.042 (1.001-1.035); Squamous Epithelial Cell,Urine 9 /hpf (0-5); Urobilinogen,Urine 2.0 mg/dL (0.0-1.0); WBC,Urine 415 /hpf (0-5)
[2024-12-31 18:15] LABS: Culture Indicated,Urine Yes
[2024-12-31 18:40] LABS: Alanine Aminotransferase 15 U/L (10-49); Albumin, Serum 4.7 gm/dL (3.4-4.8); Albumin/Globulin Ratio 2.1 (1.2-2.2); Alkaline Phosphatase 114 U/L (46-116); Anion Gap 8 (7-16); Aspartate Amino Transferase 36 U/L (0-34); BUN/Creatinine Ratio 14 Ratio (12-20); Bilirubin,Total 0.3 mg/dL (0.3-1.2); Blood Urea Nitrogen 14 mg/dL (9-23); Calcium 9.8 mg/dL (8.3-10.6); Calcium (Corrected) 9.8 mg/dL (8.5-10.1); Carbon Dioxide 26.4 mMol/L (20.0-31.0); Chloride 107 mMol/L (98-107); Creatinine (Component) 1.0 mg/dL (0.6-1.3); Estimated Creatinine Clearance 72.2 mL/min (>60); Globulin 2.2 gm/dL (2.3-3.5); Glucose 92 mg/dL (74-106); Lipase 32 U/L (12-53); Osmolality,Calculated 281 (275-295); Sodium 141 mMol/L (136-145); Total Protein 6.9 gm/dL (5.7-8.2); eGFR > 60 See Note
[2024-12-31 18:46] LABS: Potassium 5.1 mMol/L (3.4-5.1)
--- NOTE | 2024-12-31 18:46 | XR_ITS ---
Examination: CT abdomen and pelvis without contrast. Coronal 3-D reconstructions. Sagittal 2-D reconstructions. Date and time of exam: December 31, 2024, 1857 hours INDICATIONS: Lower back pelvic pain radiating to the back beginning 1 week ago CTDI: vol (mGy): 14.6 DLP: (mGycm): 744 Technique: Axial images of the abdomen have been obtained, 3 mm slice thickness Intravenous contrast material has not been administered. Low dose protocols were performed. One or more of the following dose reduction techniques were used; automated exposure control, adjustment of the mA and/or KV according to patient size, use of iterative reconstruction technique. Findings: No visualized liver splenic lesion Absent gallbladder, no common bile duct stones No pancreatic or adrenal mass No renal or ureteral calculi, no hydronephrosis Aortic calcification no aneurysmal dilatation No pericecal inflammatory change 14 mm fat-containing umbilical hernia Colonic diverticulosis, no diverticulitis Absent uterus Contracted urinary bladder Transpedicular lumbar fusion L4-L5 with satisfactory alignment Severe bilateral neural foraminal stenosis L5-S1 with significant L5 ganglionic compression IMPRESSION: No renal or ureteral calculi, no hydronephrosis No CT findings of appendicitis bowel obstruction or diverticulitis Transpedicular lumbar fusion L5-S1 with satisfactory alignment Severe bilateral neuroforaminal stenosis L5-S1 with significant bilateral L5 ganglionic compression
--- NOTE | 2024-12-31 18:47 | XR_ITS ---
EXAMINATION: AP chest single view TECHNIQUE: AP portable upright chest single view Date and time: December 31, 2024, 192 hours INDICATION: Shortness of breath today FINDINGS: Normal heart size The lungs are clear. The osseous structures are intact IMPRESSION: No active disease
--- NOTE | 2024-12-31 18:47 | PD.EDFMALE ---
ED Female Urogenital RME/HPI General Chief complaint: Abdominal Pain Stated complaint: LOWER ABD PAIN RADIATING TO BACK X1 WEEK Time Seen by Provider: 12/31/24 17:31 Arrival date/time: 12/31/24 17:25 RME / HPI RME / HPI Narrative: 12/31/24 17:25 This is a 59-year-old female that comes into the emergency room with complaints of dysuria. Patient also complains of abdominal pain and back pain and nausea. Patient was diagnosed with a UTI earlier today at the clinic. Patient states symptoms are worse she is a lot more nauseated and she was told to come back to the emergency room if her symptoms change or worsen. Patient is also complaining of hematuria. Patient has a history of MS arthritis and fibromyalgia I have greeted and performed a focused initial assessment of this patient. Initial appropriate labs ordered at this time. A comprehensive ED assessment and evaluation of the patient and analysis of all test and completion of medical decision making process will be conducted by additional ED provider. See [facility] for Dr. Hernandez's HPI Documentation. Exam: Breathing even and unlabored, alert and oriented diffuse lower abdominal pain Impression: Abdominal pain Related Data Home Medications ?Medication ?Instructions ?Recorded ?Confirmed omeprazole 40 mg capsule,delayed 40 mg PO QDAY 08/30/19 01/11/22 release pregabalin 200 mg capsule 200 mg PO TID 08/30/19 01/11/22 cyclobenzaprine 10 mg tablet 10 mg PO QDAY 01/11/22 01/11/22 Previous Rx's ?Medication ?Instructions ?Recorded albuterol sulfate 90 mcg/actuation 1 inh inhalation Q4H PRN shortness 11/03/20 aerosol inhaler of breath or wheezing #8.5 grams rizatriptan 10 mg disintegrating See Rx Instructions PO .COMPLEX 07/29/24 tablet (Maxalt-[employer]) #20 tabs ketorolac 10 mg tablet 10 mg PO Q8H #10 tabs 11/01/24 ondansetron 4 mg disintegrating 4 mg PO Q8H #10 tabs 11/01/24 tablet acetaminophen 300 mg-codeine 30 mg 2 tab PO Q8H PRN pain #10 tabs 12/31/24 tablet cefdinir 300 mg capsule 300 mg PO BID #14 caps 12/31/24 ondansetron 4 mg disintegrating 4 mg PO TID PRN nausea and 12/31/24 tablet vomiting 30 days #10 tabs Allergies Allergy/AdvReac Type Severity Reaction Status Date / Time azithromycin Allergy Severe ITCHING Verified 12/03/24 11:52 cephalexin Allergy Severe ITCHING Verified 12/03/24 11:52 clarithromycin Allergy Severe ITCHING Verified 12/03/24 11:52 clindamycin Allergy Severe ITCHING, Verified 12/03/24 11:52 RASH latex Allergy Severe DIFF. Verified 12/03/24 11:52 BREATHING, RASH, ITCHING Penicillins Allergy Severe ITCHING Verified 12/03/24 11:52 Sulfa (Sulfonamide Allergy Severe HIVES Verified 12/03/24 11:52 Antibiotics) ciprofloxacin Allergy Intermediate ITCHING,RITU Verified 12/03/24 11:52 H peginterferon beta-1a Allergy Intermediate LOCALIZED Verified 12/03/24 11:52 REACTION AT INJECT SITE rifampin Allergy Unknown RASH Verified 12/03/24 11:52 OCCUVISE Allergy Severe Anaphylaxis Uncoded 12/03/24 11:52 Review of Systems Review of Systems Systems Reviewed: All systems reviewed, normal except as documented Past Medical History Past Medical History NEUROLOGIC: Positive Neurological Disorders, Meningitis, Seizures, Multiple Sclerosis and Migraine CARDIAC: Positive Cardiac Disorders, Atherosclerotic Heart Disease, Hypercholesterolemia and Edema GASTROINTESTINAL: Positive Gastrointestinal Disorders, Colitis, Diverticulitis and Ulcer REPRODUCTIVE: Positive Endometriosis and Previous Pregnancies MUSCULOSKELETAL: Positive Musculoskeletal Disorders, Arthritis and Fibromyalgia PSYCHO/SOCIAL: Positive Depression, Anxiety and Post Traumatic Stress Disorder OTHER HISTORY: Positive Hospitalization, Shingles and Chicken Pox Family History FAMILY HISTORY: Positive Family Psychiatric Problems, Family Respiratory Disorders, Family Cardiac Disorders, Family Gastrointestinal Problems and Family Cancer Surgical History SURGICAL: Positive Ear Surgery, Tonsillectomy, Adenoidectomy, Cochlear Implant, Abdominal Surgery, Joint Replacement and Hysterectomy Social History SMOKING STATUS: Heavy (> 1 pack/day) ED Exam Narrative Physical exam: See [facility] for Dr. Hernandez's Physical Exam Documentation. Course Quality Measures none Orders Category Date Time Status Saline [Insert IV] NOW Care 12/31/24 18:[address] abdomen pelvis wo con Stat Exams 12/31/24 18:46 Completed XR chest 1V portable Stat Exams 12/31/24 18:47 Completed Blood Culture (Lab) Stat Lab 12/31/24 19:51 Received CBC Stat Lab 12/31/24 18:03 Completed CRP [C-Reactive Protein] Stat Lab 12/31/24 19:17 Completed Comprehensive Metabolic Panel Stat Lab 12/31/24 18:03 Completed ESR [Sed Rate (ESR)] Stat Lab 12/31/24 19:17 Completed Lactate (Lactic Acid) Stat Lab 12/31/24 19:17 Completed Lipase Stat Lab 12/31/24 18:03 Completed Magnesium Stat Lab 12/31/24 19:17 Completed Procalcitonin Stat Lab 12/31/24 19:17 Completed Urinalysis, C/S if Indicated Stat Lab 12/31/24 17:54 Completed Urine Culture Stat Lab 12/31/24 17:54 Received Ketorolac Inj [Toradol Inj] Med 12/31/24 18:45 Discontinued 30 mg IVP X1 ONE Ondansetron Inj [Zofran Inj] Med 12/31/24 18:45 Discontinued 4 mg IVP X1 ONE Sodium Chloride 0.9% 1000 ml [Ns] 1,000 ml Med 12/31/24 18:45 Discontinued IV 999 mls/hr cefTRIAXone/D5w 1gm IV premix [Rocephin/D5w 1gm IV Med 12/31/24 18:45 Discontinued premix] 1 gm in 50 ml IV X1 Vital Signs Vital signs: Vital Signs Temperature 98.1 F 12/31/24 17:38 Pulse Rate 88 12/31/24 17:38 Respiratory Rate 18 12/31/24 17:38 Blood Pressure 161/84 H 12/31/24 17:38 Pulse Oximetry (%) 97 12/31/24 17:38 Oxygen Delivery Method Room Air 12/31/24 17:38 Urogenital - Female MDM Narrative MDM Narrative:: This section includes all my notes and documentations, including HPI, PE, and ED course. Lj Hernandez MD HPI: 59 y/o female with Hx of Multiple Sclerosis presents with several days of dysuria, and subjective fever. No other complaints. ROS: All negative except as documented in HPI. Physical Exam: General: Alert and oriented. No acute distress when remaining still. Eyes: Conjunctivae and lids clear. ENT: No nasal congestion. Neck: Supple. Heart: RRR. Lungs: No respiratory distress. Good air movement. No rhonchi, wheezing, rales. Abdomen: Soft and nontender. Normal bowel sounds. No distension. No rebound or guarding. Back: No CVA tenderness. Skin: Warm and dry. Neuro: Alert and oriented X 3. I reviewed all diagnostic test results: My interpretation of the chest x-ray is: NAD. My review of the Abdomen/Pelvis CT report is: NAD. Blood tests and urine tests remarkable for UTI. At this point, diagnoses include: UTI Treatment here included: Rocephin 1 G IV Toradol 30 mg IV Zofran 4 mg IV IVF Significant improvement noted. Recommended outpatient care. Based on my best medical judgment, made decision no further evaluation or treatment indicated at this time. Patient understands and agrees to the discharge instructions customized and printed, see below. Discharge instructions from Dr. Hernandez: 1. After evaluation, you were treated for severe UTI. 2. Take cefdinir to kill the germs causing the infection. 3. For good hydration, increase oral fluid and maintain clear urine. If dark or yellow, increase oral fluid. Zofran for nausea/vomiting. 4. See a private doctor on 01/24 for recheck. Ask to check the final urine culture results from today to make sure cefdinir doesn't need to be changed due to resistance. 5. Seek immediate medical care with worsening, fever, or with any concerns. Lj Hernandez MD Patient data External records reviewed:: [facility] previous records (Reviewed prior ED records from 12/03/24. Patient was seen for Contusion of foot.) Clinical information provided by:: patient Social determinants that could affect healthcare access:: none Patient has the following chronic illnesses:: Meningitis, Seizures, Multiple Sclerosis, Migraine, Atherosclerotic Heart Disease, Hypercholesterolemia, Edema, Colitis, Diverticulitis and Ulcer, Endometriosis, Arthritis, Fibromyalgia, Depression, Anxiety and Post Traumatic Stress Disorder How is presenting disease/condition affected by chronic disease/condition?: exacerbated by Evaluation data The following diagnostics were reviewed and interpreted by me:: lab results and radiology exam(s) Lab and/or radiology exams considered but not ordered:: None Interpretation Summary: I reviewed all diagnostic test results: My interpretation of the chest x-ray is: NAD. My review of the Abdomen/Pelvis CT report is: NAD. Blood tests and urine tests remarkable for UTI. Medications / Prescriptions Medications or Prescriptions considered but not ordered:: None Medication administrations:: Medication Administration History Discontinued Medications Ceftriaxone Sodium/Dextrose (Rocephin/D5w 1gm Iv Premix) 1 gm in 50 mls @ 100 mls/hr IV X1 ONE Stop: 12/31/24 19:14 Last Infusion: 12/31/24 20:25 Dose: Infused Documented By: Admin: 12/31/24 20:01 Dose: 100 mls/hr Documented By: BD Sodium Chloride (Ns) 1,000 mls @ 999 mls/hr IV .Q1H1M ONE Stop: 12/31/24 19:45 Last Infusion: 12/31/24 20:25 Dose: Infused Documented By: Admin: 12/31/24 19:22 Dose: 999 mls/hr Documented By: BD Ketorolac Tromethamine (Ketorolac Inj 30 Mg/Ml Vial) 30 mg IVP X1 ONE Stop: 12/31/24 18:46 Last Admin: 12/31/24 19:22 Dose: 30 mg Documented By: BD Ondansetron HCl (Ondansetron Inj 2 Mg/Ml Inj 2 Ml) 4 mg IVP X1 ONE; Protocol Stop: 12/31/24 18:46 Last Admin: 12/31/24 19:22 Dose: 4 mg Documented By: BD Treatment here included: Rocephin 1 G IV Toradol 30 mg IV Zofran 4 mg IV IVF Consultations Consultation(s) initiated? (list below): No Diagnosis Urogenital Female Differential Diagnosis: urinary tract infection, cystitis and other (Pyelonephritis, Renal calculi) Most likely diagnosis given after review of the tests above:: UTI Admission Indicated Admission indicated?: not indicated Explain why admission is indicated or not indicated:: With significant improvement and no condition needing emergent intervention, there was no indication for admission. Admission Request Was there a request for admission?: No Disposition Plan Disposition Plan: Discharge Discharge Attestation Discharge Attestation: The patient and all family members were given an opportunity to ask questions and understood the discharge instructions. Discharge instructions specifically effects, indications for sooner follow up or return to the emergency department, and the expected course of current diagnosis. Patient condition: Stable Discharge Plan Plan Patient Disposition: HOME (Self Care) Prescriptions/Referrals Prescriptions/Med Rec: New acetaminophen-codeine 300-30 mg tablet 2 tab PO Q8H MDD 6 PRN (Reason: pain) Qty: 10 0RF ondansetron 4 mg tablet,disintegrating 4 mg PO TID PRN (Reason: nausea and vomiting) 30 Days Qty: 10 0RF cefdinir 300 mg capsule 300 mg PO BID Qty: 14 0RF No Action omeprazole 40 mg Capsule,Delayed Release(Dr/Ec) 40 mg PO QDAY pregabalin 200 mg Capsule 200 mg PO TID albuterol sulfate 90 mcg/actuation HFA aerosol inhaler 1 inh inhalation Q4H PRN (Reason: shortness of breath or wheezing) Qty: 8.5 0RF ketorolac 10 mg tablet 10 mg PO Q8H Qty: 10 0RF Rx Instructions: maximum total duration of 5 days from all oral, intranasal, or parenteral formulations ondansetron 4 mg tablet,disintegrating 4 mg PO Q8H Qty: 10 0RF cyclobenzaprine 10 mg tablet 10 mg PO QDAY rizatriptan [Maxalt-[employer]] 10 mg tablet,disintegrating See Rx Instructions .ROUTE .COMPLEX Qty: 20 0RF Rx Instructions: take 1 tab at onset of headache; if no relief may repeat 1 tab after at least 2 hrs; max = 3 tabs/24 hr Referrals: No Primary/Family,Physician [Primary Care Provider] - In 1 week Problem List Clinical Impression: UTI (urinary tract infection) Patient/Caregiver Discharge Instructions Discharge Activity: activity as tolerated Education Materials: ED CYSTITIS Female Adult Additional Instructions: Discharge instructions from Dr. Hernandez: 1. After evaluation, you were treated for severe UTI. 2. Take cefdinir to kill the germs causing the infection. 3. For good hydration, increase oral fluid and maintain clear urine. If dark or yellow, increase oral fluid. Zofran for nausea/vomiting. 4. See a private doctor on 01/24 for recheck. Ask to check the final urine culture results from today to make sure cefdinir doesn't need to be changed due to resistance. 5. Seek immediate medical care with worsening, fever, or with any concerns. Print Language: Arabic Stand Alone Forms: Olivia Award Info., Patient Portal Info Letter
[2024-12-31] MEDS: ONDANSETRON INJ 2 MG/ML INJ 2 ML 4 MG IVP (19:22)
[2024-12-31] MEDS: SODIUM CHLORIDE 0.9% 1000 ML 1,000 ML 999 ML IV (19:22)
[2024-12-31] MEDS: KETOROLAC INJ 30 MG/ML VIAL IVP (19:22)
[2024-12-31 19:29] LABS: Lactate (Lactic Acid) 1.5 mMol/L (0.4-2.0)
[2024-12-31 19:45] LABS: Sed Rate (ESR) 26 mm/hr (0-30)
[2024-12-31] MEDS: cefTRIAXone/D5w 1gm IV premix 1 GM/50 ML BAG IV (20:01)
[2024-12-31 20:04] LABS: C-Reactive Protein 1.0 mg/dL (0.0-0.9); Magnesium 2.0 mg/dL (1.6-2.6); Procalcitonin < 0.04 ng/ml (0.0-0.49)
== END 2024-12-31 20:27 | disposition home or self-care (01) ==
PROVIDERS: Nurse Practitioner Family; Emergency Provider Emergency Medicine
DX: N39.0 Urinary tract infection, site not specified (principal); G35.D Multiple sclerosis, unspecified; M19.90 Unspecified osteoarthritis, unspecified site; M79.7 Fibromyalgia
CPT/HCPCS: 36415; 71045; 74176; 80053; 81001; 83605; 83690; 83735; 84145; 85025; 85652; 86140; 87040; 87086; 96361; 96365; 96375; 99284; J0696; J1885; J2405; J7030

== ENCOUNTER 2025-01-14 08:32 | Emergency (ER) | payer MEDICARE, MEDICAID, SELFPAY ==
[2025-01-14 09:44] VITALS: BP 163/96; PULSE 68; RESP 20; TEMP 36.7; O2SAT 98; BMI 36.3
--- NOTE | 2025-01-14 09:56 | PD.EDRME ---
Rapid Medical Screening Exam RME Arrival date/time: 01/14/25 08:32 Chief Complaint: Skin/Abscess/Foreign Body Time Seen by Provider: 01/14/25 11:01 Vital signs: Vital Signs Temperature 98.1 F 01/14/25 09:44 Pulse Rate 68 01/14/25 09:44 Respiratory Rate 20 01/14/25 09:44 Blood Pressure 163/96 H 01/14/25 09:44 Pulse Oximetry (%) 98 01/14/25 09:44 Oxygen Delivery Method Room Air 01/14/25 09:44 RME Narrative: 59-year-old female complaining of right breast pain worse x 2 days after popping a abscess now it is spreading. Exam: Head: Normocephalic, atraumatic. Respiratory: Normal effort. No respiratory distress or accessory muscle use. Neuro: Speech normal. Skin: Warm, dry, normal color. Psych: Pleasant. Normal affect. Cooperative. Clinical Impression: Concern for breast abscess
--- NOTE | 2025-01-14 10:26 | XR_ITS ---
Examination: Breast ultrasound, unilateral, right complete Date and time of exam: January 14, 2025, 10:40 a.m. INDICATIONS: Lump in the 3 o'clock position left breast versus abscess 3 days Technique: Real-time lundberg scale ultrasonographic imaging performed left breast including all 4 quadrants as well as nipple retroareolar and axillary region. Findings: 3:00 mass, poorly defined 11 x 6 x 14 mm with surrounding edema IMPRESSION: 3. O'clock mass with surrounding edema, indistinct margins, differential would include abscess, malignant neoplasm of the breast Short-term follow-up breast sonography is strongly recommended with antibiotic therapy to document resolution of this mass
[2025-01-14 10:33] LABS: Basophils # (Auto) 0.0 Thou/mm3 (0.0-0.2); Basophils % (Auto) 0 % (0-2.5); Eosinophils # (Auto) 0.1 Thou/mm3 (0.0-0.5); Eosinophils % (Auto) 1 % (0-10); Hematocrit 46.8 % (36.0-46.0); Hemoglobin 15.7 g/dL (12.0-16.0); Immature Granulocytes Auto 0.03 Thou/mm3 (0.00-0.00); Lymphocytes # (Auto) 2.3 Thou/mm3 (1.0-4.8); Lymphocytes % (Auto) 30 % (10-50); Mean Corpuscular HGB Conc 33.5 g/dl (31.0-37.0); Mean Corpuscular Hemoglobin 30.9 pg (25.0-35.0); Mean Corpuscular Volume 92 fL (80-100); Monocytes # (Auto) 0.6 Thou/mm3 (0.0-0.8); Monocytes % (Auto) 7 % (0-12); Neutrophils # (Auto) 4.7 Thou/mm3 (1.8-7.7); Neutrophils % (Auto) 61 % (37-80); Nucleated Red Blood Cell # 0.00 Thou/mm3 (0.00-0.00); Nucleated Red Blood Cell % 0 /100 WBC (0); Platelet Count 255 Thou/mm3 (140-440); RDW Standard Deviation 45.4 fL (36.4-46.3); Red Blood Count 5.08 Miln/mm3 (4.00-5.20); White Blood Count 7.7 Thou/mm3 (3.6-11.0)
[2025-01-14 10:53] LABS: Alanine Aminotransferase 18 U/L (10-49); Albumin, Serum 4.9 gm/dL (3.4-4.8); Albumin/Globulin Ratio 2.1 (1.2-2.2); Alkaline Phosphatase 131 U/L (46-116); Anion Gap 6 (7-16); Aspartate Amino Transferase 22 U/L (0-34); BUN/Creatinine Ratio 12 Ratio (12-20); Bilirubin,Total 0.5 mg/dL (0.3-1.2); Blood Urea Nitrogen 11 mg/dL (9-23); Calcium 9.9 mg/dL (8.3-10.6); Calcium (Corrected) 9.9 mg/dL (8.5-10.1); Carbon Dioxide 29.8 mMol/L (20.0-31.0); Chloride 106 mMol/L (98-107); Creatinine (Component) 0.9 mg/dL (0.6-1.3); Estimated Creatinine Clearance 80.2 mL/min (>60); Globulin 2.3 gm/dL (2.3-3.5); Glucose 99 mg/dL (74-106); Osmolality,Calculated 282 (275-295); Potassium 4.3 mMol/L (3.4-5.1); Sodium 142 mMol/L (136-145); Total Protein 7.2 gm/dL (5.7-8.2); eGFR > 60 See Note
--- NOTE | 2025-01-14 11:02 | EDNOTE_ITS ---
ED Skin Abcess FB-RME/HPI General Chief complaint: Skin/Abscess/Foreign Body Stated complaint: ABSCESS RIGHT CHEST X FIVE DAYS Time Seen by Provider: 01/14/25 11:01 Arrival date/time: 01/14/25 08:32 RME / HPI RME / HPI narrative: 59-year-old female complaining of right breast pain worse x 2 days after popping an abscess now it is spreading. Pt was seen here about 2 weeks ago and given cefdinir which she completed the course about 1 week ago. Denies fever, SOB, N/V. Exam: Related Data Home Medications ?Medication ?Instructions ?Recorded ?Confirmed omeprazole 40 mg capsule,delayed 40 mg PO QDAY 0 01/11/22 release pregabalin 200 mg capsule 200 mg PO TID 08/30/1901/11 cyclobenzaprine 10 mg tablet 10 mg PO QDAY 01/11/22 Previous Rx's ?Medication ?Instructions ?Recorded albuterol sulfate 90 mcg/actuation 1 inh inhalation Q4 H PRN shortness 11/03/20 aerosol inhaler of breath or wheezing #8.5 g delon rizatriptan 10 mg disintegrating See Rx Instructions P O .COMPLEX 07/29/24 tablet (Maxalt-[employer]) #20 tabs ketorolac 10 mg tablet 10 mg PO Q8H #10 tabs ondansetron 4 mg disintegrating 4 mg PO Q8H #10 tabs 0 11/01/24 tablet acetaminophen 300 mg-codeine 30 mg 2 tab PO Q8H PRN pa in #10 tabs 12/31/24 tablet cefdinir 300 mg capsule 300 mg PO BID #14 caps 12/31 ondansetron 4 mg disintegrating 4 mg PO TID PRN nausea and 12/31/24 tablet vomiting 30 days #10 tabs Allergies Allergy/AdvReac Type Severity Reaction Status Date / Time azithromycin Allergy Severe ITCHING Verified 01/14/25 08:36 cephalexin Allergy Severe ITCHING Verified 01/14/25 08:36 clarithromycin Allergy Severe ITCHING Verified 01/14/25 08:36 clindamycin Allergy Severe ITCHING, Verified 01/14/25 08:36 RASH latex Allergy Severe DIFF. Verified 01/14/25 08:36 BREATHING, RASH, ITCHING Penicillins Allergy Severe ITCHING Verified 01/14/25 08:36 Sulfa (Sulfonamide Allergy Severe HIVES Verified 01/14/25 08:36 Antibiotics) ciprofloxacin Allergy Intermediate ITCHING,RITU Verified 01/14/25 08:36 H peginterferon beta-1a Allergy Intermediate LOCALIZED Verified 01/14/25 08:36 REACTION AT INJECT SITE rifampin Allergy Unknown RASH Verified 01/14/25 08:36 OCCUVISE Allergy Severe Anaphylaxis Uncoded 01/14/25 08:36 ED Exam Narrative Physical exam: Constitutional: Vital Signs Reviewed. Well appearing. No acute distress. Not toxic appearing. Head: Normocephalic, atraumatic. Eyes: Conjunctiva clear. ENT: Mucous membranes moist. Neck: Trachea midline. Normal range of motion. No nuchal rigidity. Respiratory: Normal effort. No respiratory distress or accessory muscle use. Neuro: Alert and oriented. Speech normal. No focal gross motor or sensory deficits observed. Skin: Warm, dry, normal color. Psych: Pleasant. Normal affect. Cooperative. Course Quality Measures none Orders Category Date Time Status US breast RT complete Stat Exams 01/14/25 10:26 Completed CBC Stat Lab 01/14/25 10:08 Completed CMP [Comprehensive Metabolic Panel] Stat Lab 01/14/25 10:08 Completed Vital Signs Vital signs: Vital Signs Temperature 98.1 F 01/14/25 09:44 Pulse Rate 68 01/14/25 09:44 Respiratory Rate 20 01/14/25 09:44 Blood Pressure 163/96 H 01/14/25 09:44 Pulse Oximetry (%) 98 01/14/25 09:44 Oxygen Delivery Method Room Air 01/14/25 09:44 Skin / Abscess / Foreign Body MDM Narrative MDM Narrative:: Concern for breast abscess per ultrasound reading Labs without severe metabolic or electrolyte abnormality however alk phos is minimally elevated at 131 Patient eloped prior to my full physical exam or breast abscess or mass Patient data External records reviewed:: [facility] previous records Clinical information provided by:: patient Social determinants that could affect healthcare access:: other (specify) Patient has the following chronic illnesses:: As noted How is presenting disease/condition affected by chronic disease/condition?: uneffected by Evaluation data The following diagnostics were reviewed and interpreted by me:: other (specify) Lab and/or radiology exams considered but not ordered:: Additional Labs and radiology considered, but not ordered as they were not clinically indicated at this time. Interpretation Summary: As noted Medications / Prescriptions Medications or Prescriptions considered but not ordered:: I considered prescription management (both outpatient prescriptions AND drug treatment in the ER) and decided that this was necessary and was prescribed as charted. Medication administrations:: As noted Consultations Consultation(s) initiated? (list below): No Diagnosis Skin/Abscess Differential Diagnosis: abscess of skin or subcutaneous tissue, cellulitis and other (Cancer) Most likely diagnosis given after review of the tests above:: Breast abscess Admission Indicated Admission indicated?: not indicated Admission Request Was there a request for admission?: No Disposition Plan Disposition Plan: other (specify) Discharge Plan Plan Patient Disposition: Elopement Patient condition on transfer: Stable Prescriptions/Referrals Prescriptions/Med Rec: No Action omeprazole 40 mg Capsule,Delayed Release(Dr/Ec) 40 mg PO QDAY pregabalin 200 mg Capsule 200 mg PO TID albuterol sulfate 90 mcg/actuation HFA aerosol inhaler 1 inh inhalation Q4H PRN (Reason: shortness of breath or wheezing) Qty: 8.5 0RF ketorolac 10 mg tablet 10 mg PO Q8H Qty: 10 0RF Rx Instructions: maximum total duration of 5 days from all oral, intranasal, or parenteral formulations ondansetron 4 mg tablet,disintegrating 4 mg PO Q8H Qty: 10 0RF acetaminophen-codeine 300-30 mg tablet 2 tab PO Q8H MDD 6 PRN (Reason: pain) Qty: 10 0RF ondansetron 4 mg tablet,disintegrating 4 mg PO TID PRN (Reason: nausea and vomiting) 30 Days Qty: 10 0RF cefdinir 300 mg capsule 300 mg PO BID Qty: 14 0RF cyclobenzaprine 10 mg tablet 10 mg PO QDAY rizatriptan [Maxalt-SE[employer]ET[employer]] 10 mg tablet,disintegrating See Rx Instructions .ROUTE .COMPLEX Qty: 20 0RF Rx Instructions: take 1 tab at onset of headache; if no relief may repeat 1 tab after at least 2 hrs; max = 3 tabs/24 hr Problem List Clinical Impression: Abscess of breast Patient/Caregiver Discharge Instructions Print Language: Cape Verdean
--- NOTE | 2025-01-14 15:25 | PC.NURSE ---
CALLED FOR PT FROM LOBBY/OUTSIDE, NO ANSWERX1 @ [phone]
--- NOTE | 2025-01-14 16:29 | PC.NURSE ---
CALLED FOR PT FROM LOBBY/OUTSIDE, NO ANSWERX2@ [phone]
--- NOTE | 2025-01-14 16:42 | PC.NURSE ---
CALLED OUTSIDE AND LOBBY NO ANSWER @ [phone]
== END 2025-01-14 16:44 | disposition left against medical advice (07) ==
PROVIDERS: Physician Assistant; Emergency Provider Family Medicine
DX: N61.1 Abscess of the breast and nipple (principal); Z53.29 Procedure and treatment not carried out because of patient's decision for other reasons
CPT/HCPCS: 36415; 76641; 80053; 85025; 99283

== ENCOUNTER 2025-02-14 06:50 | Day surgery (SDC) | payer MEDICARE, MEDICAID, SELFPAY ==
[2025-02-13 06:54] VITALS: BMI 36.6
[2025-02-13 08:58] LABS: Basophils # (Auto) 0.0 Thou/mm3 (0.0-0.2); Basophils % (Auto) 0 % (0-2.5); Eosinophils # (Auto) 0.2 Thou/mm3 (0.0-0.5); Eosinophils % (Auto) 1 % (0-10); Hematocrit 47.5 % (36.0-46.0); Hemoglobin 16.0 g/dL (12.0-16.0); Immature Granulocytes Auto 0.05 Thou/mm3 (0.00-0.00); Lymphocytes # (Auto) 3.1 Thou/mm3 (1.0-4.8); Lymphocytes % (Auto) 29 % (10-50); Mean Corpuscular HGB Conc 33.7 g/dl (31.0-37.0); Mean Corpuscular Hemoglobin 30.8 pg (25.0-35.0); Mean Corpuscular Volume 91 fL (80-100); Monocytes # (Auto) 0.7 Thou/mm3 (0.0-0.8); Monocytes % (Auto) 7 % (0-12); Neutrophils # (Auto) 6.6 Thou/mm3 (1.8-7.7); Neutrophils % (Auto) 62 % (37-80); Nucleated Red Blood Cell # 0.00 Thou/mm3 (0.00-0.00); Nucleated Red Blood Cell % 0 /100 WBC (0); Platelet Count 253 Thou/mm3 (140-440); RDW Standard Deviation 42.5 fL (36.4-46.3); Red Blood Count 5.20 Miln/mm3 (4.00-5.20); White Blood Count 10.6 Thou/mm3 (3.6-11.0)
[2025-02-13 09:21] LABS: Alanine Aminotransferase 20 U/L (10-49); Albumin, Serum 4.8 gm/dL (3.4-4.8); Albumin/Globulin Ratio 1.7 (1.2-2.2); Alkaline Phosphatase 134 U/L (46-116); Anion Gap 8 (7-16); Aspartate Amino Transferase 21 U/L (0-34); BUN/Creatinine Ratio 11 Ratio (12-20); Bilirubin,Total 0.4 mg/dL (0.3-1.2); Blood Urea Nitrogen 9 mg/dL (9-23); Calcium 10.1 mg/dL (8.3-10.6); Calcium (Corrected) 10.1 mg/dL (8.5-10.1); Carbon Dioxide 25.8 mMol/L (20.0-31.0); Chloride 107 mMol/L (98-107); Creatinine (Component) 0.8 mg/dL (0.6-1.3); Estimated Creatinine Clearance 89.5 mL/min (>60); Globulin 2.9 gm/dL (2.3-3.5); Glucose 70 mg/dL (74-106); Osmolality,Calculated 277 (275-295); Potassium 4.0 mMol/L (3.4-5.1); Sodium 141 mMol/L (136-145); Total Protein 7.7 gm/dL (5.7-8.2); eGFR > 60 See Note
[2025-02-14 06:00] VITALS: BP 156/92; PULSE 72; RESP 18; TEMP 36.3; O2SAT 100; BMI 36.4
[2025-02-14 09:25] VITALS: BP 144/86; PULSE 71; RESP 12; TEMP 36.3; O2SAT 97
--- NOTE | 2025-02-14 09:25 | SUR.PHASEII ---
0925: Pt. AAOx4, vitals stable, breathing unlabored, no complaint of pain or nausea, dressing to right chest CDI, no active bleed noted, report received from MD Dyer and Martin MADRIGAL.
[2025-02-14 09:30] VITALS: BP 139/86; PULSE 67; RESP 18; TEMP 36.3; O2SAT 97
--- NOTE | 2025-02-14 09:34 | ESOP_ITS ---
Date of Procedure 02/14/25 Pre Op Diagnosis Right mid chest mass Post Op Diagnosis Right mid chest mass Procedure Excision of subcutaneous soft tissue from right mid chest Findings Approximately 3 cm subcutaneous soft tissue mass in right mid chest Procedure Description Patient brought into the operating room in supine position. After admi nistration of monitored anesthesia care, patient's chest was prepped and draped in standard surgical manner. After administration of local anesthesia an approximately 4 cm elliptical incision was made over the right mid chest mass. The underlying subcutaneous soft tissue mass was circumferentially dissected off surrounding tissue and excised. The wound was washed and irrigated. Hemostasis achieved using electrocautery. Subcutaneous tissue reapproximated with interrupted sutures using 2-0 Vicryl. Incision was closed with 4-0 Monocryl in subcuticular fashion. Dermabond applied. Patient tolerated procedure well. She was breathing spontaneously and without difficulty and was transferred to postanesthesia care in stable condition. Instruments, needles and sponge counts were reported to be correct x 2. Anesthesia MAC and local Pathology / specimen Other (Right mid chest mass) Estimated Blood Loss 2 Condition Stable Disposition PACU Surgeon Mary Lou Saldana MD Surgical Staff Operation Date: 02/14/25 09:00 Case Staff Anesthesiologist: Reji Dyer
[2025-02-14 09:35] VITALS: BP 139/79; PULSE 71; RESP 17; TEMP 36.3; O2SAT 97
[2025-02-14] MEDS: fentaNYL CIT INJ 50 mCg/ML AMP 2ML 25 MCG IVP ×2 (09:37→09:44)
[2025-02-14 09:40] VITALS: BP 136/74; PULSE 72; RESP 17; TEMP 36.4; O2SAT 97
[2025-02-14 09:55] VITALS: BP 136/84; PULSE 67; RESP 15; TEMP 36.3; O2SAT 96
--- NOTE | 2025-02-14 10:05 | SUR.PHASEII ---
1005: Pt. AAOx4, vitals stable, breathing unlabored, no complaint of pain or nausea, dermabond to chest CDI, no active bleed noted, pt. tolerated sips of soda well, pt. ambulated to wheelchair with steady gait and no assist, no complications. Gave discharge instructions to the pt. and her ride, both verbalized understanding and had no further questions. Pt. left with all personal belongings.
== END 2025-02-14 10:05 | disposition home or self-care (01) ==
PROVIDERS: Anesthesiology; PCP Family Medicine; Referring Provider Surgery; Visit Provider Surgery
PROC: (CPT 21552; principal; 2025-02-14 09:00)
DX: L72.8 Other follicular cysts of the skin and subcutaneous tissue (principal); M19.90 Unspecified osteoarthritis, unspecified site; M79.7 Fibromyalgia; E78.00 Pure hypercholesterolemia, unspecified; F17.200 Nicotine dependence, unspecified, uncomplicated; G89.29 Other chronic pain; M54.9 Dorsalgia, unspecified
CPT/HCPCS: 21552; 36415; 80053; 85025; A4217; A4649; J2250; J2704; J3010; J3490

== ENCOUNTER 2025-02-16 07:58 | Emergency (ER) | payer MEDICARE, MEDICAID, SELFPAY ==
[2025-02-16 07:59] VITALS: BMI 36.6
[2025-02-16 08:09] VITALS: BP 140/81; PULSE 80; RESP 18; TEMP 36.6; O2SAT 98
--- NOTE | 2025-02-16 08:15 | PD.EDWOUND ---
ED Wound/Laceration-RME/HPI General Chief Complaint: Wound Recheck / Suture Removal Stated Complaint: PAINFUL INCISION Time Seen by Provider: 02/16/25 08:04 Arrival date/time: 02/16/25 07:58 60-year-old female presents to the emergency department today stating that 2 days ago she had a procedure to remove a cyst on her chest patient reports that she has some pain at the incision site and she believes that there is some erythema as well Limitations: no limitations Related Data Home Medications ?Medication ?Instructions ?Recorded ?Confirmed fremanezumab-vfrm 225 mg/1.5 mL 225 mg subcut QMONTH 02/13/25 02/14/25 subcutaneous syringe (Ajovy Syringe) gabapentin 100 mg capsule 100 mg PO TID 02/13/25 02/14/25 ubrogepant 100 mg tablet (Ubrelvy) 100 mg PO BID PRN migraine headache 02/13/25 02/14/25 Previous Rx's ?Medication ?Instructions ?Recorded albuterol sulfate 90 mcg/actuation 1 inh inhalation Q4H PRN shortness 11/03/20 aerosol inhaler of breath or wheezing #8.5 grams ibuprofen 600 mg tablet 600 mg PO Q8H PRN pain (scale 02/14/25 score 4-6) #15 tabs doxycycline hyclate 100 mg capsule 100 mg PO BID 7 days #14 caps 02/16/25 hydrocodone 5 mg-acetaminophen 325 1 tab PO BID PRN pain #6 tabs 02/16/25 mg tablet tramadol 50 mg tablet 50 mg PO BID PRN pain #6 tabs 02/16/25 Allergies Allergy/AdvReac Type Severity Reaction Status Date / Time azithromycin Allergy Severe ITCHING Verified 02/16/25 08:02 cephalexin Allergy Severe ITCHING Verified 02/16/25 08:02 clarithromycin Allergy Severe ITCHING Verified 02/16/25 08:02 clindamycin Allergy Severe ITCHING, Verified 02/16/25 08:02 RASH latex Allergy Severe DIFF. Verified 02/16/25 08:02 BREATHING, RASH, ITCHING Penicillins Allergy Severe ITCHING Verified 02/16/25 08:02 Sulfa (Sulfonamide Allergy Severe HIVES Verified 02/16/25 08:02 Antibiotics) ciprofloxacin Allergy Intermediate ITCHING,RITU Verified 02/16/25 08:02 H peginterferon beta-1a Allergy Intermediate LOCALIZED Verified 02/16/25 08:02 REACTION AT INJECT SITE rifampin Allergy Unknown RASH Verified 02/16/25 08:02 OCCUVISE Allergy Severe Anaphylaxis Uncoded 02/16/25 08:02 Review of Systems Review of Systems Systems Reviewed: All systems reviewed, normal except as documented Constitutional Constitutional: Reports system reviewed and no additional complaints, except as documented, Denies fever(s) and Denies headache(s) Eyes Eyes: Reports system reviewed and no additional complaints, except as documented and Denies blurry vision ENT Ears, Nose, Mouth, and Throat: Reports system reviewed and no additional complaints, except as documented, Denies headache(s), Denies nasal congestion and Denies nasal discharge Cardiovascular Cardiovascular: Reports system reviewed and no additional complaints, except as documented, Denies chest pain and Denies dyspnea Respiratory Respiratory: Reports system reviewed and no additional complaints, except as documented, Denies chest congestion, Denies cough and Denies dyspnea Gastrointestinal Gastrointestinal: Reports system reviewed and no additional complaints, except as documented and Denies abdominal pain Integumentary/Breasts Skin/Breast: Reports system reviewed and no additional complaints, except as documented, Denies rash and Reports wounds (Surgical incision chest) Neurologic Neurologic: Reports system reviewed and no additional complaints, except as documented, Reports as per HPI and Denies headache(s) Past Medical History Past Medical History NEUROLOGIC: Positive Neurological Disorders, Meningitis, Seizures (2.5 YEARS AGO, NO MEDICATION), Multiple Sclerosis and Migraine CARDIAC: Positive Cardiac Disorders and Hypercholesterolemia (no meds); Negative Atherosclerotic Heart Disease, Congestive Heart Failure, Edema or Hypertension RESPIRATORY: Negative Chronic Obstructive Pulmonary Disease (COPD) or Asthma GASTROINTESTINAL: Positive Gastrointestinal Disorders, Colitis, Diverticulitis and Ulcer; Negative Gall Bladder Disease GENITOURINARY: Negative Genitourinary Disorders or Renal Disease REPRODUCTIVE: Positive Endometriosis and Previous Pregnancies MUSCULOSKELETAL: Positive Musculoskeletal Disorders, Arthritis and Fibromyalgia ENT: Negative Cataracts ENDOCRINE: Negative Endocrine Disorders, Diabetes Mellitus Type 1 or Diabetes Mellitus Type 2 HEMATOLOGIC: Negative Blood Disorders or Sickle Cell Disease PSYCHO/SOCIAL: Positive Depression, Anxiety and Post Traumatic Stress Disorder OTHER HISTORY: Positive Hospitalization, Shingles and Chicken Pox; Negative Autoimmune Disease, Blood Transfusions, Blood Transfusion Reaction, Anesthesia Reactions or Cancer Family History FAMILY HISTORY: Positive Family Psychiatric Problems, Family Respiratory Disorders, Family Cardiac Disorders, Family Gastrointestinal Problems and Family Cancer; Negative Family Surgery or Family Anesthesia Reaction Surgical History SURGICAL: Positive Ear Surgery, Tonsillectomy, Adenoidectomy, Cochlear Implant, Abdominal Surgery, Joint Replacement and Hysterectomy; Negative Cardiac Surgery Social History SMOKING STATUS: Current every day smoker SUBSTANCE USE: does not use ED Exam General Limitations: Present no limitations General appearance: Present alert and in no apparent distress Head Head exam: Present atraumatic Eye Eye exam: Present normal appearance, PERRL and EOMI ENT ENT exam: Present normal exam, normal oropharynx and mucous membranes moist Neck Neck exam: Present normal inspection, full ROM and trachea midline Chest Chest inspection: Present normal inspection and symmetric chest wall rise Respiratory Respiratory exam: Present normal lung sounds bilaterally Cardiovascular Cardiovascular exam: Present regular rate, normal rhythm and normal heart sounds Abdominal Exam Abdominal exam: Present soft and normal bowel sounds Extremities Exam Extremities exam: Present normal inspection and full ROM Back Exam Back exam: Present normal inspection and full ROM Neurological Exam Neurological exam: Present alert, oriented X3 and CN II-XII intact Psychiatric Psychiatric exam: Present normal affect and normal mood Skin Skin exam: Present warm and dry Expanded Skin Exam Body image:  1. Small superficial surgical incision mild erythema Course Quality Measures none Vital Signs Vital signs: Vital Signs Temperature 97.9 F 02/16/25 08:09 Pulse Rate 80 02/16/25 08:09 Respiratory Rate 18 02/16/25 08:09 Blood Pressure 140/81 H 02/16/25 08:09 Pulse Oximetry (%) 98 02/16/25 08:09 Oxygen Delivery Method Room Air 02/16/25 08:09 O2 saturation 98% room air within normal limits Wound / Laceration MDM Narrative MDM Narrative:: 60-year-old female presents to the emergency department today stating that 2 days ago she had a procedure to remove a cyst on her chest patient reports that she has some pain at the incision site and she believes that there is some erythema as well Clinically patient well-appearing does not appear ill or toxic patient may have mild erythema at the site Patient given pain medication as well as antibiotics Consultation: Spoke with Dr Saldana patient surgeon informed him that she was in the ER and that she will follow-up with him in the office Patient discharged home in no distress to follow-up with primary care doctor in the next 24 to 48 hours and for any worsening symptoms to return to the ER immediately Patient data External records reviewed:: [facility] previous records Clinical information provided by:: patient Social determinants that could affect healthcare access:: none Patient has the following chronic illnesses:: See history How is presenting disease/condition affected by chronic disease/condition?: caused by Evaluation data The following diagnostics were reviewed and interpreted by me:: other (specify) Lab and/or radiology exams considered but not ordered:: Considered not indicated Interpretation Summary: N/A Medications / Prescriptions Medications or Prescriptions considered but not ordered:: Given Medication administrations:: Given Consultations Consultation(s) initiated? (list below): No Diagnosis Wound Differential Diagnosis: laceration, abscess, abrasion, avulsion of skin and other Most likely diagnosis given after review of the tests above:: Postop pain Admission Indicated Admission indicated?: not indicated Admission Request Was there a request for admission?: No Disposition Plan Disposition Plan: Discharge Discharge Attestation Discharge Attestation: The patient and all family members were given an opportunity to ask questions and understood the discharge instructions. Discharge instructions specifically effects, indications for sooner follow up or return to the emergency department, and the expected course of current diagnosis. Patient condition: Stable Discharge Plan Plan Patient Disposition: HOME (Self Care) Discharge Disposition comment: Stable Prescriptions/Referrals Prescriptions/Med Rec: New doxycycline hyclate 100 mg capsule 100 mg PO BID 7 Days Qty: 14 0RF hydrocodone-acetaminophen 5-325 mg tablet 1 tab PO BID MDD 10 PRN (Reason: pain) Qty: 6 0RF tramadol 50 mg tablet 50 mg PO BID PRN (Reason: pain) Qty: 6 0RF No Action albuterol sulfate 90 mcg/actuation HFA aerosol inhaler 1 inh inhalation Q4H PRN (Reason: shortness of breath or wheezing) Qty: 8.5 0RF gabapentin 100 mg capsule 100 mg PO TID Patient Comments: TAKE ONE CAPSULE BY MOUTH THREE TIMES DAILY FOR NERVE PAIN Ajovy Syringe 225 mg/1.5 mL syringe 225 mg SUBCUT QMONTH Patient Comments: INJECT ONE PEN SUBCUTANEOUSLY into abdmoen, thigh, OR upper arm EVERY MONTH Ubrelvy 100 mg tablet 100 mg PO BID PRN (Reason: migraine headache) ibuprofen 600 mg tablet 600 mg PO Q8H PRN (Reason: pain (scale score 4-6)) Qty: 15 0RF Problem List Clinical Impression: Post-op pain Patient/Caregiver Discharge Instructions Education Materials: Medicine for Pain Additional Instructions: Please follow up with your primary care doctor in the next 24-48hrs for any worsening symptoms return here immediately Print Language: Vietnamese Stand Alone Forms: Olivia Award Info., Patient Portal Info Letter PA/[employer] Supervising Physician PA/[employer]WORK[employer] Supervising Physician: dr whyte
== END 2025-02-16 08:25 | disposition home or self-care (01) ==
LOC: SERX 08:28
PROVIDERS: Emergency Provider Family Medicine
DX: G89.18 Other acute postprocedural pain (principal)
CPT/HCPCS: 99281